=== PATIENT | female | born 1960 | race Caucasian/White ===

== ENCOUNTER 2016-10-10 10:34 | Emergency (ER) | payer OTHER ==
--- NOTE | 2016-10-10 11:52 | UC ---
Headache HPI - HPI Summary HPI Summary: complaint of headache that started 3 days ago- pain woke her up in the middle of the night when it started - feels different than her normal headaches headache started in her entire head and then moved to only the left side of head pain is achy constant pain yesterday started to feel tendernesss in her left side of face, left ear pain, left side of neck feels sore, left jaw pain when she opens and closes her mouth , left sided of throat pain denies dental pain feels like the hair on the left side of her head hurts slight nasal congestion d/t allergies for weeks denies fever but has had chills, feels fatigued taken acetaminophen and allergra, nasal spray without any relief denies vision changes, N/V/D - History Of Current Complaint Hx Obtained From: Patient Onset/Duration: Sudden Onset, Lasting Days Onset Of Symptoms: Still Present Initially Headache Was: "Worst Headache Ever" Timing: Constant Character: Dull Location of Headache: Temporal Aggravating Factor: Other - coughing Allevating Factors: Nothing Associated Signs And Symptoms: Positive: Sinus Pressure, Neck Pain <Kate Wilkerson - Last Filed: 10/10/16 12:29> <Osiris Robles - Last Filed: 10/10/16 14:16> - History Of Current Complaint Chief Complaint: UCHeadache Stated Complaint: HEADACHE Time Seen by Provider: 10/10/16 11:51 - Allergies/Home Medications Allergies/Adverse Reactions: Allergies Allergy/AdvReac Type Severity Reaction Status Date / Time Latex Allergy Severe Swelling Verified 03/25/16 13:03 Of Face,Lips,& Throat Meperidine [From Demerol HCl] Allergy Severe Swelling Verified 03/25/16 13:03 Of Face,Lips,& Throat Morphine Allergy Severe Swelling Verified 03/25/16 13:03 Of Face,Lips,& Throat Aspirin Allergy Intermediate upset Verified 03/25/16 13:03 stomach Hydrocodone Allergy Hives Verified 03/25/16 13:03 Hydromorphone [From Dilaudid] Allergy Hives/Diff. Verified 03/25/16 13:03 Breathing/I tching Oxycodone Allergy Itching Verified 03/25/16 13:03 PMH/Surg Hx/FS Hx/Imm Hx Previously Healthy: Yes - arthritis Neurological History: Migraine Psychological History: Anxiety, Depression - Surgical History Surgical History: None Surgery Procedure, Year, and Place: hysterectomy 2002, cholecyestectomy- 1978, breast biopsy -1978, COLONOSCOPY WITH POLYP REMOVAL, BLADDER WAS REPAIRED NO MESH AT TIME OF HYSTERECTOMY DUE TO BLADDER CYST; achilles tendon repair right - Family History Known Family History: Positive: Cardiac Disease, Other - Breast CA Negative: Hypertension, Diabetes - Social History Occupation: Employed Full-time Lives: With Family Alcohol Use: Rare Substance Use Type: None Substance Use Comment - Amount & Last Used: 2-3 CUPS COFFEE DAILY Smoking Status (MU): Former Smoker Type: Cigarettes Amount Used/How Often: 1 PPD X 25 YEARS Have You Smoked in the Last Year: No When Did the Patient Quit Smoking/Using Tobacco: 8 yrs ago - Immunization History Most Recent Tetanus Shot: UTD <Kate Wilkerson - Last Filed: 10/10/16 12:29> Review of Systems Constitutional: Chills, Fatigue Skin: Negative Eyes: Negative ENT: Sore Throat, Ear Ache Respiratory: Negative Cardiovascular: Negative Gastrointestinal: Negative Genitourinary: Negative Motor: Negative Neurovascular: Negative Musculoskeletal: Negative Neurological: Headache Psychological: Negative All Other Systems Reviewed And Are Negative: Yes <Kate Wilkerson - Last Filed: 10/10/16 12:29> Physical Exam Triage Information Reviewed: Yes Appearance: Well-Nourished, Pain Distress Vital Signs: Initial Vital Signs Temp 98 F 10/10/16 10:39 Pulse 82 10/10/16 10:39 Resp 18 10/10/16 10:39 Pulse Ox 100 10/10/16 10:39 Vital Signs Reviewed: Yes Eyes: Positive: Conjunctiva Clear, Other: - PERRL, EOMI left side tenderness, fundoscopic exam normal ENT: Positive: Pharynx normal, Nasal drainage, TM bulging, Other: - left side of face and temporal area tenderness. Negative: TM red Neck: Positive: Supple, No Lymphadenopathy Respiratory: Positive: Lungs clear, Normal breath sounds, No respiratory distress, No accessory muscle use Cardiovascular: Positive: RRR, No Murmur, Pulses Normal Abdomen Description: Positive: Nontender, Soft Bowel Sounds: Positive: Present Musculoskeletal: Positive: No Edema Neurological: Positive: Alert, Other: - negative romberg Psychological Exam: Normal Skin Exam: Normal <Kate Wilkerson - Last Filed: 10/10/16 12:29> Vital Signs: Initial Vital Signs Temp 98 F 10/10/16 10:39 Pulse 82 10/10/16 10:39 Resp 18 10/10/16 10:39 Pulse Ox 100 10/10/16 10:39 <Osiris Robles - Last Filed: 10/10/16 14:16> Headache Course/Dx - Course Course Of Treatment: exam completed. d/t 3 days headache that is now left sided - tenderness intemporal area and pain with left eye movement will send to ED for further evaluation and treatment. refuses ambu,ance transfer and will leave AMA and have friend take her by private vehicle - Differential Dx/Diagnosis Differential Diagnosis/HQI/PQRI: Subdural Hematoma, Migraine, Temporal Arteritis Provider Diagnoses: left sided headache and facial pain - Physician Notifications Discussed Patient Care With: Osiris Robles Time Discussed With Above Provider: 12:31 <Kate Wilkerson - Last Filed: 10/10/16 12:29> Discharge <Kate Wilkerson - Last Filed: 10/10/16 12:29> <Osiris Robles - Last Filed: 10/10/16 14:16> - Discharge Plan Condition: Stable Disposition: AGAINST MEDICAL ADVICE Referrals: Sabino Nelson MD [Primary Care Provider] - Attestation Statement User Type: Provider - I was available for consult. This patient was seen by the СЕРГЕЙ. The patient was not presented to, seen by, or examined by me. -Michael <Osiris Robles - Last Filed: 10/10/16 14:16>
[2016-10-10 12:38] VITALS: BP 132/75
== END 2016-10-10 12:34 | disposition left against medical advice (07) ==
LOC: UCEAST 10:34
DX: R51 Headache (principal); G50.1 Atypical facial pain; Z87.891 Personal history of nicotine dependence
CPT/HCPCS: 99212; G0463

== ENCOUNTER → 2016-10-10 12:59 | Emergency (ER) | payer OTHER ==
[~2016-10-10 12:59] MED LIST: Iohexol 350* (CONTRAST) 500 ML MDV IV ONE
--- NOTE | 2016-10-10 15:28 | RAD ---
HISTORY: Worst headache of life COMPARISONS: None TECHNIQUE: Multiple contiguous axial CT scans were obtained of the head without intravenous contrast. FINDINGS: HEMORRHAGE/INFARCT: There is no hemorrhage or acute infarct. MASSES/SHIFT: There is no mass or shift. EXTRA-AXIAL SPACES: There are no extra-axial fluid collections. SULCI AND VENTRICLES: The sulci and ventricles are normal in size and position for the patient's stated age. CEREBRUM: There are no focal parenchymal abnormalities. BRAINSTEM: There are no focal parenchymal abnormalities. CEREBELLUM: There are no focal parenchymal abnormalities. VESSELS: The vessels are grossly normal. PARANASAL SINUSES: The paranasal sinuses are clear. ORBITS: The orbits are unremarkable. BONES AND SOFT TISSUE: No bone or soft tissue abnormalities are noted. OTHER: None IMPRESSION: NO ACUTE INTRACRANIAL PATHOLOGY.
[2016-10-10 15:50] LABS: Hematocrit 38 % (35-47); Hemoglobin 12.2 g/dl (12.0-16.0); Mean Corpuscular HGB Conc 33 g/dl (31-36); Mean Corpuscular Hemoglobin 29 pg (27-31); Mean Corpuscular Volume 89 fL (80-97); Mean Platelet Volume 9 um3 (7.4-10.4); Red Blood Count 4.23 10^6/ul (4.0-5.4); Red Cell Distribution Width 14 % (10.5-15); White Blood Count 6.8 10^3/ul (3.5-10.8)
--- NOTE | 2016-10-10 16:03 | ED ---
Headache - HPI Summary HPI Summary: Patient presents to ED from [facility] with CC of numbness in left side of face, HOLLOWAY in left temporal area, left ear pain, left side of neck pain and pain with left eye movement. Slight tearing from the eye worse at night and better during the day. Denies worst HOLLOWAY of life, but states there are short bursts lightning pain that runs through the face, head and neck intermittently. Denies jaw claudication, fever, visual disturbances or transient vision loss. Patient has a history of HLA-B27 with mild diffuse pain throughout at baseline. No weakness , facial droop or slurred speech. Face does not feel weak, just feels severe pain on palpation. New onset HOLLOWAY x 1 week with no changes and not worsening. Denies trauma. No nasal drainage. No hx of migraines. Denies photophobia or phonophobia. - History Of Current Complaint Chief Complaint: EDHeadache Stated Complaint: HEADACHE/LT SIDE FACIAL PAIN Time Seen by Provider: 10/10/16 14:30 Hx Obtained From: Patient Onset/Duration: Started days ago Initially Headache Was: Initial Pain Scale(0-10)= - 8 Currently Pain Is: Current Pain Scale(0-10)= - 8 Timing: Intermittent, Lasting: - several seconds Character: Sharp, Throbbing Location of Headache: Temporal Radiates to: left side of face Allevating Factors: Nothing Associated Signs And Symptoms: Negative - Risk Factors SAH Risk Factors: Negative Meningitis Risk Factors: Negative SDH Risk Factors: Negative Temporal Arteritis Risk Factors: Negative - Allergies/Home Medications Allergies/Adverse Reactions: Allergies Allergy/AdvReac Type Severity Reaction Status Date / Time Latex Allergy Severe Swelling Verified 03/25/16 13:03 Of Face,Lips,& Throat Meperidine [From Demerol HCl] Allergy Severe Swelling Verified 03/25/16 13:03 Of Face,Lips,& Throat Morphine Allergy Severe Swelling Verified 03/25/16 13:03 Of Face,Lips,& Throat Aspirin Allergy Intermediate upset Verified 03/25/16 13:03 stomach Hydrocodone Allergy Hives Verified 03/25/16 13:03 Hydromorphone [From Dilaudid] Allergy Hives/Diff. Verified 03/25/16 13:03 Breathing/I tching Oxycodone Allergy Itching Verified 03/25/16 13:03 PMH/Surg Hx/FS Hx/Imm Hx Previously Healthy: Yes Endocrine/Hematology History: Denies: Hx Diabetes, Hx Thyroid Disease Cardiovascular History: Reports: Hx Angina Denies: Hx Congestive Heart Failure, Hx Coronary Artery Disease, Hx Hypercholesterolemia, Hx Hypertension, Hx Myocardial Infarction, Hx Pacemaker/ ICD, Hx Valvular Heart Disease Respiratory History: Reports: Hx Asthma - with illnesses, Hx Pneumonia, Hx Seasonal Allergies Denies: Hx Chronic Obstructive Pulmonary Disease (COPD) GI History: Reports: Hx Irritable Bowel, Hx Ulcer - gerd, Other GI Disorders - irritable bowel syndrome History: Denies: Hx Renal Disease Musculoskeletal History: Reports: Hx Arthritis, Hx Fibromyalgia, Hx Orthopedic Injury - plantar fascia, Other Musculoskeletal History - fibromyalgia Sensory History: Reports: Hx Contacts or Glasses Denies: Hx Cataracts, Hx Eye Injury, Hx Eye Prosthesis, Hx Glaucoma, Hx Macular Degeneration, Hx Vision Problem, Hx Hearing Aid, Other Sensory Impairments Opthamlomology History: Reports: Hx Contacts or Glasses Denies: Hx Cataracts, Hx Eye Injury, Hx Eye Prosthesis, Hx Glaucoma, Hx Macular Degeneration, Hx Vision Problem, Other Sensory Impairments Neurological History: Reports: Hx Headaches, Hx Migraine - l Denies: Hx Dementia, Hx Developmental Delay, Hx Seizures, Hx Spinal Cord Injury, Hx Transient Ischemic Attacks (TIA) Psychiatric History: Reports: Hx Depression - ON PAXIL FOR MILD DEPRESSION Denies: Hx Panic Disorder - Surgical History Surgery Procedure, Year, and Place: hysterectomy 2002, cholecyestectomy- 1978, breast biopsy -1978, COLONOSCOPY WITH POLYP REMOVAL, BLADDER WAS REPAIRED NO MESH AT TIME OF HYSTERECTOMY DUE TO BLADDER CYST; achilles tendon repair right Hx Anesthesia Reactions: No - slow to come out of it - Immunization History Hx Pertussis Vaccination: No Immunizations Up to Date: Unable to Obtain/Confirm Infectious Disease History: No Infectious Disease History: Denies: Hx Clostridium Difficile, Hx Hepatitis, Hx Human Immunodeficiency Virus (HIV), Hx of Known/Suspected MRSA, Hx Shingles, Hx Tuberculosis, Hx Known/ Suspected VRE, Hx Known/Suspected VRSA, History Other Infectious Disease, Traveled Outside the [place] in Last 30 Days - Family History Known Family History: Positive: Cardiac Disease, Other - Breast CA Negative: Hypertension, Diabetes - Social History Occupation: Employed Full-time Lives: With Family Alcohol Use: Rare Hx Substance Use: No Substance Use Type: Reports: None Substance Use Comment - Amount & Last Used: 2-3 CUPS COFFEE DAILY Hx Tobacco Use: Yes Smoking Status (MU): Former Smoker Type: Cigarettes Amount Used/How Often: 1 PPD X 25 YEARS Have You Smoked in the Last Year: No Review of Systems Constitutional: Negative Positive: Drainage - mild ENT: Negative Cardiovascular: Negative Respiratory: Negative Positive: no symptoms reported, see HPI Skin: Negative Positive: Headache, Weakness, Paresthesia, Numbness Psychological: Normal All Other Systems Reviewed And Are Negative: Yes Physical Exam Triage Information Reviewed: Yes Vital Signs On Initial Exam: Initial Vitals Temp Pulse Resp BP Pulse Ox 98.8 F 72 16 147/56 98 10/10/16 13:00 10/10/16 13:00 10/10/16 13:00 10/10/16 13:00 10/10/16 13:00 Completion Of Physical Exam Limited Due To: Dementia Appearance: Positive: Well-Appearing, Well-Nourished Skin: Positive: Warm, Skin Color Reflects Adequate Perfusion Head/Face: Positive: Temporal Artery Tenderness, TMJ Tenderness, Scalp - tenderness Eyes: Positive: Normal, ABRAHAN, Conjunctiva Clear Neck: Positive: Supple, Nontender, No Lymphadenopathy Respiratory/Lung Sounds: Positive: Clear to Auscultation, Breath Sounds Present Musculoskeletal: Positive: Normal, Strength/ROM Intact Neurological: Positive: Normal, Sensory/Motor Intact, Alert, Oriented to Person Place, Time, CN Intact II-III, Normal Gait, Facial Symmetry, Speech Normal Psychiatric: Positive: Normal AVPU Assessment: Alert - [place] Coma Scale Coma Scale Total: 15 Diagnostics - Vital Signs Vital Signs Temp Pulse Resp BP Pulse Ox 10/10/16 13:00 98.8 F 72 16 147/56 98 - Laboratory Lab Results: Lab Results 10/10/16 Range/Units 15:41 WBC 6.8 (3.5-10.8) 10^3/ul RBC 4.23 (4.0-5.4) 10^6/ul Hgb 12.2 (12.0-16.0) g/dl Hct 38 (35-47) % MCV 89 (80-97) fL MCH 29 (27-31) pg MCHC 33 (31-36) g/dl RDW 14 (10.5-15) % Plt Count 224 (150-450) 10^3/ul MPV 9 (7.4-10.4) um3 Neut % (Auto) 43.2 (38-83) % Lymph % (Auto) 43.3 (25-47) % Dewey % (Auto) 10.6 H (1-9) % Eos % (Auto) 2.2 (0-6) % Baso % (Auto) 0.7 (0-2) % Absolute Neuts (auto) 3.0 (1.5-7.7) 10^3/ul Absolute Lymphs (auto) 3.0 (1.0-4.8) 10^3/ul Absolute Monos (auto) 0.7 (0-0.8) 10^3/ul Absolute Eos (auto) 0.2 (0-0.6) 10^3/ul Absolute Basos (auto) 0 (0-0.2) 10^3/ul Absolute Nucleated RBC 0.01 10^3/ul Nucleated RBC % 0.1 ESR Pending Result Diagrams: 10/10/16 15:41 Lab Statement: Any lab studies that have been ordered have been reviewed, and results considered in the medical decision making process. Headache Course/Dx - Course Course Of Treatment: Based on International Classification of Headache Disorders , she meets diagnostic criteria for trigeminal neuralgia. Denies jaw claudication, fever, visual disturbances or transient vision loss. Patient has a history of HLA-B27 with mild diffuse pain throughout at baseline. New onset HOLLOWAY x 1 week with no changes and not worsening. Denies trauma. Seen at who sent her here for r/o subarachnoid or subdural. Discharge - Discharge Plan Referrals: Sabino Nelson MD [Primary Care Provider] -
[2016-10-10 16:59] LABS: Erythrocyte Sed Rate 25 mm/Hr (0-30)
[2016-10-10 18:35] LABS: Albumin 3.7 g/dL (3.2-5.2); BUN/Creatinine Ratio 21.5 (8-20); Calcium 8.7 mg/dL (8.6-10.3); EGFR African American 121.7 (>60); EGFR Non-African American 94.6 (>60); Globulin 2.3 g/dL (2-4); Potassium 3.6 mmol/L (3.5-5.0); Total Bilirubin 0.4 mg/dL (0.2-1.0)
--- NOTE | 2016-10-10 20:10 | RAD ---
Indication: Left facial and head pain. Contrast: Administered 80.1 ml of OMNIPAQUE 350 mgi/ml CTA of the neck and head was performed after IV contrast administration. Coronal and sagittal reconstructed images were obtained. The origins of the great vessels are unremarkable. The right and left common carotid artery demonstrates no calcifications. Internal carotid artery and bulb demonstrates no abnormal calcification. The internal carotid arteries bilaterally demonstrates normal caliber without evidence of carotid artery dissection. The vertebral arteries demonstrates no evidence of vertebral artery dissection. Basilar artery is unremarkable. The intracranial carotid arteries demonstrates normal bifurcation. No aneurysmal dilatation is noted. No branch occlusion is identified. The posterior cerebral arteries are unremarkable. The soft tissues of the neck including thyroid gland, submandibular glands and parotid glands are unremarkable. Scattered normal-sized lymph nodes are present throughout the neck. The lung apices are grossly unremarkable. IMPRESSION: No evidence of internal carotid artery or vertebral artery dissection. Vessels appear normal caliber throughout. Intracranial vessels demonstrates no evidence of a residual dilatation or branch occlusion.
[2016-10-10 20:36] VITALS: BP 129/71
== END | disposition home or self-care (01) ==
LOC: ED 12:59
DX: G50.0 Trigeminal neuralgia (principal); F03.90 Unspecified dementia, unspecified severity, without behavioral disturbance, psychotic disturbance, mood disturbance, and anxiety; Z88.5 Allergy status to narcotic agent
CPT/HCPCS: 36415; 70450; 70496; 70498; 80053; 85025; 85652; 86140; 99282; Q9967

== ENCOUNTER 2017-09-11 14:02 | Emergency (ER) | payer OTHER ==
--- NOTE | 2017-09-11 15:25 | UC ---
Shoulder Pain HPI - HPI Summary HPI Summary: 10 years ago patient had a partial tear of her biceps tendon heads had pain in her right antecubital area was treated with physical therapy and has been doing fine in the last 7-10 days patient has had right shoulder pain with no known injuries she has pain that radiates from the anterior shoulder up around. She has decreased range of motion and the pain is now been waking her up at night. - History of Current Complaint Hx Obtained From: Patient Hx Last Menstrual Period: post ?: No Onset/Duration: Gradual Onset, Lasting Days - 7-10, Still Present Timing: Constant Location Of Pain: Is Discrete @ - right shoulder Pain Intensity: 7 Pain Scale Used: 0-10 Numeric Character: Aching, Throbbing Aggravating Factor(s): Movement Alleviating Factor(s): Nothing Associated Signs And Symptoms: Positive: Negative Related History: Dominant Hand Right <Nguyen Carbone - Last Filed: 09/11/17 17:31> <Osiris Robles - Last Filed: 09/12/17 08:15> - History of Current Complaint Chief Complaint: UCUpperExtremity Stated Complaint: SHOULDER INJURY Time Seen by Provider: 09/11/17 15:20 - Allergies/Home Medications Allergies/Adverse Reactions: Allergies Allergy/AdvReac Type Severity Reaction Status Date / Time aspirin Allergy Severe GI Upset Verified 09/11/17 14:38 hydrocodone Allergy Severe airway Verified 09/11/17 14:38 swelling hydromorphone Allergy Severe airway Verified 09/11/17 14:38 swelling latex Allergy Severe swelling, Verified 09/11/17 14:38 airway meperidine Allergy Severe swelling, Verified 09/11/17 14:38 airway morphine Allergy airway Verified 09/11/17 14:38 swelling oxycodone Allergy airway Verified 09/11/17 14:38 swelling PMH/Surg Hx/FS Hx/Imm Hx Previously Healthy: No - enviromental allergies GI/ History: Gastroesophageal Reflux Psychological History: Depression - Surgical History Surgical History: Yes Surgery Procedure, Year, and Place: hysterectomy 2002, cholecyestectomy- 1978, breast biopsy -1978, COLONOSCOPY WITH POLYP REMOVAL, BLADDER WAS REPAIRED NO MESH AT TIME OF HYSTERECTOMY DUE TO BLADDER CYST; achilles tendon repair right - Family History Known Family History: Positive: Cardiac Disease, Other - Breast CA Negative: Hypertension, Diabetes - Social History Occupation: Unemployed Lives: With Family Alcohol Use: Rare Substance Use Type: None Substance Use Comment - Amount & Last Used: 2-3 CUPS COFFEE DAILY Smoking Status (MU): Former Smoker Type: Cigarettes Amount Used/How Often: 1 PPD X 25 YEARS Have You Smoked in the Last Year: No When Did the Patient Quit Smoking/Using Tobacco: 8 yrs ago - Immunization History Most Recent Tetanus Shot: UTD <Nguyen Carbone - Last Filed: 09/11/17 17:31> Review of Systems Constitutional: Negative Skin: Negative Eyes: Negative ENT: Negative Respiratory: Negative Cardiovascular: Negative Gastrointestinal: Negative Genitourinary: Negative Motor: Decreased ROM - right shoulder Neurovascular: Negative Musculoskeletal: Arthralgia - right shoulder Neurological: Negative Psychological: Negative Is Patient Immunocompromised?: No All Other Systems Reviewed And Are Negative: Yes <Nguyen Carbone - Last Filed: 09/11/17 17:31> Physical Exam Triage Information Reviewed: Yes Appearance: Well-Appearing, No Pain Distress, Well-Nourished Vital Signs: Initial Vital Signs Temp 98 F 09/11/17 14:18 Pulse 71 09/11/17 14:18 Resp 15 09/11/17 14:18 BP 134/79 09/11/17 14:18 Pulse Ox 99 09/11/17 14:18 Vital Signs Reviewed: Yes Eye Exam: Normal Eyes: Positive: Conjunctiva Clear ENT Exam: Normal ENT: Positive: Normal ENT inspection, Hearing grossly normal. Negative: Trismus , Muffled voice, Hoarse voice Dental Exam: Normal Neck exam: Normal Neck: Positive: Supple, Nontender Respiratory Exam: Normal Respiratory: Positive: Chest non-tender, No respiratory distress, No accessory muscle use Cardiovascular Exam: Normal Cardiovascular: Positive: RRR, Pulses Normal, Brisk Capillary Refill Musculoskeletal Exam: Normal Musculoskeletal: Positive: Strength Intact, ROM Intact, No Edema Neurological Exam: Normal Neurological: Positive: Alert, Muscle Tone Normal Psychological Exam: Normal Skin Exam: Normal <Nguyen Carbone Last Filed: 09/11/17 17:31> Vital Signs: Initial Vital Signs Temp 98 F 09/11/17 14:18 Pulse 71 09/11/17 14:18 Resp 15 09/11/17 14:18 BP 134/79 09/11/17 14:18 Pulse Ox 99 09/11/17 14:18 <Osiris Robles - Last Filed: 09/12/17 08:15> Diagnostics - Radiology No standard instances Xray Interpretation: Positive (See Comments) - Patient Name: IAN CLINTON Medical Record#: [id number] Ordering Physician: Nguyen Carbone NP Acct.#: [id number] : 1960 Age: 56 Sex: F Location: [facility] Exam Date: 09/11/17 1525 ADM Status : REG ER Order Information: SHOULDER RIGHT 2+ VWS Accession Number: [id number] CPT: 91555 Indication: Right shoulder pain. 4 views of the right shoulder demonstrates AC joint arthritis. There is no fracture. Joint spaces well-preserved. IMPRESSION: AC joint arthritis without fracture. <Electronically signed by Yaquelin Rolon MD in OV> 09/11/17 1557 Dictated By: Yaquelin Rolon MD Dictated Date/Time: 09/11/17 1557 Transcribed Date/Time: 09/11/17 1556 Copy to: CC:Shelley Murray MD; Nguyen Carbone NP; Cleveland Farr MD Imaging - [facility] Imaging - [facility] [address] [place] [address] ph [phone]) ph ([phone]) ph ([phone]) 1 of 1 Radiology Interpretation Completed By: ED Physician, Radiologist <Nguyen Carbone - Last Filed: 09/11/17 17:31> Shoulder Course/Dx - Course Assessment/Plan: Nsaids, referal to orthopedic MD, may use heat or cold for pain relief prn as well - Differential Dx/Diagnosis Provider Diagnoses: right shoulder pain, arthritis <Nguyen Carbone - Last Filed: 09/11/17 17:31> Discharge - Sign-Out/Discharge Documenting (check all that apply): Discharge/Admit/Transfer - Billing Disposition and Condition Condition: STABLE Disposition: Home <Nguyen Carbone - Last Filed: 09/11/17 17:31> - Billing Disposition and Condition Condition: STABLE Disposition: Home <Osiris Robles - Last Filed: 09/12/17 08:15> - Discharge Plan Condition: Stable Disposition: HOME Prescriptions: Meloxicam(NF) [Mobic(NF)] 7.5 mg PO BID PRN #30 tab PRN Reason: Pain Patient Education Materials: Osteoarthritis (ED), Shoulder Pain (ED) Referrals: Abhijeet Cui MD [Medical Doctor] - 1 Week Attestation Statement User Type: Provider - I was available for consult. This patient was seen by the СЕРГЕЙ. The patient was not presented to, seen by, or examined by me. -Michael <Osiris Robles - Last Filed: 09/12/17 08:15>
--- NOTE | 2017-09-11 16:00 | RAD ---
Indication: Right shoulder pain. 4 views of the right shoulder demonstrates AC joint arthritis. There is no fracture. Joint spaces well-preserved. IMPRESSION: AC joint arthritis without fracture.
[2017-09-11 16:38] VITALS: BP 136/74
== END 2017-09-11 16:33 | disposition home or self-care (01) ==
LOC: UCEAST 14:02
DX: M25.511 Pain in right shoulder (principal); M19.011 Primary osteoarthritis, right shoulder; K21.9 Gastro-esophageal reflux disease without esophagitis; F32.9 Major depressive disorder, single episode, unspecified; Z88.5 Allergy status to narcotic agent; Z88.6 Allergy status to analgesic agent; Z91.040 Latex allergy status; Z82.49 Family history of ischemic heart disease and other diseases of the circulatory system; Z80.3 Family history of malignant neoplasm of breast; Z87.891 Personal history of nicotine dependence
CPT/HCPCS: 99211; G0463

== ENCOUNTER 2017-12-25 09:10 | Day surgery (SDC) | payer BC ==
--- NOTE | 2017-12-20 22:02 | HP ---
PREOPERATIVE HISTORY AND PHYSICAL: DATE OF ADMISSION/SURGERY: 12/25/17 DATE OF OFFICE VISIT: ATTENDING SURGEON: Dr. Amber Morris.* (DICTATED BY BRADY ULRICH) PROCEDURE: Right shoulder arthroscopic rotator cuff repair, decompression, debridement, and excision of distal clavicle. CHIEF COMPLAINT: Right shoulder pain. HISTORY OF PRESENT ILLNESS: Liza is a 57-year-old female, who presents to the clinic for right shoulder pain due to a possible rotator cuff injury. She had failed conservative measures to include physical therapy, ice, heat, anti- inflammatories, and an injection. She recently got an MRI and is here for MRI results today that revealed a rotator cuff tear. Therefore, she has agreed to undergo right shoulder arthroscopic rotator cuff repair, decompression, debridement, and excision of distal clavicle with Dr. Morris on 12/25/17. PAST MEDICAL HISTORY: Fibromyalgia, GERD, back pain, lymphedema of the right leg, allergies, IBS, obstructive sleep apnea, and HLA-B27 positive. PAST SURGICAL HISTORY: Left foot surgery, cholecystectomy, hysterectomy, and breast biopsy. The patient denies prior complications with anesthesia. MEDICATIONS: 1. 150 mg/mL subcutaneous injection. 2. B12 fast dissolve 5000 mcg sublingual daily. 3. Pantoprazole 40 mg daily. 4. Fluticasone 50 mcg per ACT 2 sprays per nostril as needed. 5. Ventolin HFA 108 mcg per ACT 2 puffs 4 times a day as needed. 6. Paxil 30 mg 1 daily. 7. Valacyclovir 500 mg as needed for flare ups. 8. Gabapentin 600 mg 1 by mouth once daily. 9. Zyrtec 10 mg 1 mouth daily. ALLERGIES: LATEX, MORPHINE, DEMEROL, OXYCODONE. FAMILY HISTORY: Positive for diabetes, hypertension, stroke, cancer, and RA. SOCIAL HISTORY: She lives with her spouse. She works at [employer]. She is a former smoker, quit 10 years ago. She reports regular alcohol consumption. She is right hand dominant. REVIEW OF SYSTEMS: A 14-point review of systems was reviewed with the patient. Positive for current complaint, otherwise negative. Denies numbness, tingling, fevers, chills, chest pain, shortness of breath, history of bleeding disorder, history of DVT or PE. PHYSICAL EXAMINATION GENERAL: A 57-year-old well-developed, well-nourished female, in no acute distress. Alert and oriented x3. Appropriate mood and affect. Good balance and coordination of all 4 extremities. VITAL SIGNS: Height 66, weight 248. Blood pressure 126/68, respiratory rate 18 , BMI 40. HEENT: Normocephalic, atraumatic. PERRLA. Throat clear. NECK: Supple. PULMONARY: Lungs clear to auscultation bilaterally. No wheezing, rhonchi, or rales. CARDIO: Regular rate and rhythm, S1, S2. No murmurs, gallops, or rubs. No edema. ABDOMEN: Positive bowel sounds. Soft, nontender. MUSCULOSKELETAL: Right upper extremity: Skin is intact. No warmth or erythema. Tenderness to palpation of bicipital groove in the AC joint, tender over the subacromial space. Forward flexion 160, abduction 90, external rotation 45. +4/5 strength with supraspinatus testing with pain. Positive impingement, [place], [place], and [place]. +2 radial pulse. Sensation is intact to light touch distally. NEURO: Alert and oriented x3. Cranial nerves grossly intact. DIAGNOSTIC STUDIES: MRI of the right shoulder was independently reviewed by Dr. Morris, and reveals partial-thickness tear of the supraspinatus and infraspinatus tendon with tendinosis and the SLAP lesion. IMPRESSION: Right shoulder rotator cuff tear and AC joint arthritis. PLAN: Liza is a 57-year-old female, who presents to the clinic for followup of her right shoulder. She has tearing of her rotator cuff on MRI as well as AC joint arthritis. She has failed conservative measures to include ice, heat, anti- inflammatories, and injection and physical therapy, and has therefore agreed to undergo a right shoulder arthroscopic rotator cuff repair, decompression, debridement, and excision distal clavicle with Dr. Morris on . Postop recovery and risks of surgery to include injury to blood vessels , nerves, surrounding structures, bleeding, infection, stiffness, need for further surgery, risk of anesthesia, and risk of DVT and PE were discussed with the patient. The patient has agreed to undergo the procedure. Tylenol with Codeine will be used for postop pain management. She is unable to tolerate other narcotics. She will follow up in 10 to 14 days postop for followup and suture removal. BRADY ULRICH [id number]/[facility] #: [id number] [facility]
[~2017-12-25 09:10] MED LIST changes: +Buffered Lidocaine 0.9% SYRIN* 5 ML/SYR SYRINGE INTRADERM ONE; +Dexamethasone IV* 4 MG/ML 1 ML (4 MG) IV SLOW PU ONE; +Dexamethasone IV* 4 MG/ML 1 ML (4 MG) ONE; +Famotidine IV* 10 MG/ML 2 ML (20 mg) IV ONE; +Famotidine IV* 10 MG/ML 2 ML (20 mg) ONE; -Iohexol 350* (CONTRAST) 500 ML MDV IV ONE
[2017-12-25] MEDS ORDERED: ceFAZolin 2 GM in NS PREMIX(*) 2 GM/100 ML BAG IVPB ONE (09:11)
[2017-12-25] MEDS ORDERED: Ketorolac INJ* 30 MG/ML 1 ML VIAL ONE (09:16)
[2017-12-25] MEDS ORDERED: Midazolam* 1 MG/ML 5 ML VIAL (5 MG) ONE (09:16)
[2017-12-25] MEDS ORDERED: Ondansetron INJ* 2 MG/ML VIAL ONE (09:16)
[2017-12-25] MEDS ORDERED: Propofol* 10 MG/ML 20 ML BTL IV PUSH ONE (09:16)
[2017-12-25] MEDS ORDERED: fentaNYL* 50 MCG/ML 2 ML VIAL (100 MCG VIAL) ONE ×2 (09:16→11:01)
[2017-12-25] MEDS ORDERED: Lidocaine 2% PF * 5 ML VIAL ONE (09:16)
[2017-12-25] MEDS ORDERED: ROPIVACAINE 5 MG/ML 30 ML BTL (0.5%) ONE ×2 (09:42→11:43)
[2017-12-25] MEDS ORDERED: Ondansetron INJ* 2 MG/ML VIAL IV PRN (10:49)
[2017-12-25] MEDS ORDERED: Naloxone* 0.4 MG/ML 1 ML VIAL IV PRN (10:49)
[2017-12-25] MEDS ORDERED: DiMENhydriNATE IV* 50 MG/ML VIAL IV PUSH PRN (10:49)
[2017-12-25] MEDS ORDERED: fentaNYL* 50 MCG/ML 2 ML VIAL (100 MCG VIAL) IV PRN (10:49)
[2017-12-25] MEDS ORDERED: Glycopyrrolate IV* 0.2 MG/ML 1 ML VIAL ONE (11:09)
[2017-12-25] MEDS ORDERED: EPHEDrine (Pressors)* 50 MG/ML VIAL ONE (11:43)
[2017-12-25] MEDS ORDERED: Levalbuterol HFA INHALER* 1 PUFF MDI ONE (11:43)
[2017-12-25] MEDS ORDERED: Succinylcholine* 20 MG/ML 10 ML VIAL ONE (12:10)
[2017-12-25 13:39] VITALS: BP 101/59
--- NOTE | 2017-12-26 17:04 | OP ---
CC: PCP OPERATIVE REPORT: DATE OF OPERATION: 12/25/17 DATE OF : 60 ATTENDING SURGEON: Amber Morris MD DEATH SURVEYS CODER: BRADY Woo An pharmacist assistant was needed for the entirety of the case to help with positioning, retraction, and was ut ilized throughout all portions of the case. ANESTHESIOLOGIST: Dr. Tomas. ANESTHESIA: General with interscalene block. PRE-OP DIAGNOSIS: Right shoulder partial-thickness tear of the rotator cuff with acromioclavicular j oint arthritis and bicipital tendinitis. POST-OP DIAGNOSIS: Right shoulder partial-thickness tear of the rotator cuff with acromioclavicular joint arthritis and bicipital tendinitis. OPERATIVE PROCEDURE: 1. Right shoulder arthroscopy with extensive glenohumeral debridement including chondroplasty. 2. Subacromial decompression with acromioplasty. 3. Rotator cuff repair of the supraspinatus tendon and debridement of the subscapularis. 4. Subpectoral biceps tenodesis. 5. Distal clavicle excision arthroscopically. COMPLICATIONS: None. ESTIMATED BLOOD LOSS: Minimal. IMPLANTS USED: One 4.75 Healicoil, 1 MultiFIX, and 1 Q-FIX 2.8 mm. INDICATIONS: Liza Rojas is a 57-year-old female who has had persistent shoulder pain. She has failed conservative management including physical therapy and anti-inflammatories, and she has electe d to proceed with surgical treatment. Risks and benefits of the surgery were discussed at length incl ude but not limited to bleeding; infection; damage to nerves, vessels, surrounding structures; wound nonhealing; persistent pain; need for further surgery; scarring; stiffness; incomplete relief of symp toms; and risks of anesthesia. DESCRIPTION OF PROCEDURE: The patient was greeted in the preoperative area by the attending surgeon. The correct extremity was marked and the consent was confirmed. The patient underwent interscalene nerve block by the anesthesiologist after which she was brought back to the operating suite. She was placed in supine position on the operating table. She underwent general anesthesia and endotracheal intubation, after which she was placed in the left lateral decubitus position. She was secured with a pegboard. She was draped unsterile with 10-pound traction. The right shoulder was prepped and dr aped in usual sterile fashion beginning with chlorhexidine soap, scrub, and alcohol wipe and a final prep with ChloraPrep. After appropriate surgical pause indicating site, side, procedure, administration of antibiotics, a s tandard posterolateral portal was made sharply with an 11-blade. Scope was introduced into the joint, joint was examined. There were grade 2 changes to the glenohumeral joint with some fraying and mild osteoarthritis. The anterior portal was made in an outside-in fashion. There was a type 2 SLAP tea r. The undersurface of the rotator cuff had high-grade partial-tearing with unstable flaps. The subs cap had some partial-thickness tearing as well. The anterior portal was made in an outside-in fashio n. A shaver was used to do a small chondroplasty. The inferior recess was intact. The biceps was t hen tenotomized for later tenodesis. The undersurface of the supraspinatus and subscapularis were de brided back using the shaver. The attention was then directed to the subacromial space. With the scope in the subacromial space, the lateral portal was made and shaver was used to debride b ack the abundant bursa that was present. This was very hyperemic. Hemostasis was obtained using elec trocautery device. Next, the undersurface of the acromion was skeletonized using the electrocautery device. A 4-0 oval bur was then used to do an acromioplasty. Once this was completed, attention was directed to the distal clavicle. The bur was brought into the anterior wound and the distal 8 mm of the clavicle were then resected un anthony arthroscopic visualization using 4-0 oval bur. All fluid and debris was removed from this portio n of the case. Attention was directed to the rotator cuff. It was gently probed. The previous area that had been marked by the 0 PDS suture was then probed and was found to have partial-thickness bur dayami- sided tearing. At this point, the decision was made to complete the tear and then perform a rot ator cuff repair. The tear was completed with 11-blade. The shaver was used to debride back the ten dinopathic and diseased tissue. The electrocautery device was then used to prepare the greater tuber osity. The rasp and the 4-0 oval bur were then used to gently decorticate the greater tuberosity. A fter this was completed, through a separate stab incision one 4.75 Healicoil was then placed with exc ellent purchase. She had good quality bone. Sutures were then passed through the tendon in a horizo ntal mattress configuration. Sutures were then tied down. The sutures were then passed through 1 Mul tiFIX anchor, which was placed for lateral wall fixation. The shoulder was taken through range of mo tion and found to be intact. Final images were obtained. The wounds were copiously irrigated with s terile saline. Attention was directed to the biceps. The bed was air-planed to the right side. The anterior aspect of the shoulder was prepped again usin g ChloraPrep. A 15-blade was used to make an incision along the biceps. Soft tissues were carefully dissected to expose the fascia. Remainder of the dissection was done bluntly. The bicipital groove was then palpated. The biceps was then brought through the wound and found to have synovitis. The groove was prepared in the usual fashion and a Q-FIX 2.8 mm guide was then drilled unicortically and the Q-FIX deployed with excellent purchase. Sutures were then passed through the tendon in a Keo-A llen type configuration. The excess biceps was excised and the biceps was shoveled back to the wound and tied down. The wounds were copiously irrigated with sterile saline. The anterior wound was catarino sed with 2-0 Vicryl and 3-0 Monocryl. The portals were closed with 3-0 nylon. Sterile dressings wer e applied. She was awoken from anesthesia and transferred to PACU in stable condition. POSTOPERATIVE PLAN: She will be nonweightbearing. She will be discharged on pain medications and an tibiotics. DVT prophylaxis was considered but deferred due to no previous personal or family history . I will see the patient back in 10 to 14 days. [id number]/[facility] #: [id number]
== END 2017-12-25 14:21 | disposition home or self-care (01) ==
LOC: OR 09:10
PROVIDERS: ATTEND Orthopaedic Surgery
DX: S46.011A Strain of muscle(s) and tendon(s) of the rotator cuff of right shoulder, initial encounter (principal); M75.21 Bicipital tendinitis, right shoulder; M19.011 Primary osteoarthritis, right shoulder; G89.18 Other acute postprocedural pain; X58.XXXA Exposure to other specified factors, initial encounter; Y92.9 Unspecified place or not applicable; M79.7 Fibromyalgia; G47.33 Obstructive sleep apnea (adult) (pediatric); Z87.891 Personal history of nicotine dependence
CPT/HCPCS: A9270-GY; C1713; C1776; J0330; J0690; J1100; J1885; J2250; J2405; J2704; J2795; J3010

== ENCOUNTER 2018-05-20 11:22 | Inpatient (IN) | payer BC ==
[~2018-05-20 11:22] MED LIST changes: +Acetaminophen TAB* 325 MG PO ONE; -Buffered Lidocaine 0.9% SYRIN* 5 ML/SYR SYRINGE INTRADERM ONE; +Buffered Lidocaine 1% SYRIN* 1 ML/SYRINGE INTRADERM ONE; -Dexamethasone IV* 4 MG/ML 1 ML (4 MG) IV SLOW PU ONE; -Dexamethasone IV* 4 MG/ML 1 ML (4 MG) ONE; -Famotidine IV* 10 MG/ML 2 ML (20 mg) IV ONE; -Famotidine IV* 10 MG/ML 2 ML (20 mg) ONE; +Gabapentin CAP(*) 300 MG PO ONE; +Lactated Ringers 1000 ML Bag* 1,000 ML IV SCH
--- OUTSIDE RECORDS SUMMARY | 2018-05-20 11:26 | XMS REPORT | Continuity of Care Document ---
:1960 External Reference #:[id number] Author Name Akshat Adair Care Team Providers Name Role Phone Cleveland Farr MD Primary Care Physician Unavailable Payers Type Date Identification Numbers Payment Provider Subscriber Policy Number: [id number] [employer] Liza Rojas PayID: [id number] [address] [address] [place] [address] Expires: 2017 Policy Number: [id number] [employer] Krystian Rojas PayID: [id number] [address] [place] [address] Advance Directives Description No Information Available Problems Date Description Provider Status Onset: 04/04/2018 Impaired fasting glycaemia Jovanny Jarvis M.D.,FACP Onset: 04/04/2018 Mixed hyperlipidemia Jovanny Jarvis M.D.FACP Onset: 06/05/2017 Human leukocyte antigen B27 test Cleveland Farr Active positive KirstinFACKristel Onset: 03/12/2016 Obesity Jacqui Nielsen MD Active Onset: 03/12/2016 Allergic rhinitis Jacqui Nielsen MD Active Onset: 04/03/2016 Obstructive sleep apnea syndrome Apolonia Pollard DNP, RN, Active [employer] Onset: 10/30/2016 Trigeminal neuralgia Fox Coley M.D. Active Onset: 10/30/2016 Sleep apnea Fox Coley M.D. Active Onset: 10/30/2016 Lumbar radiculopathy Fox Coley M.D. Active Onset: 10/30/2016 Thoracic and lumbosacral Fox Coley M.D. Active neuritis Onset: 10/30/2016 Fibromyalgia Fox Coley M.D. Active Onset: 10/30/2016 Mild recurrent major depression Fox Coley M.D. 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 Agent [place] exposure. Father due to Stroke () Father Osteoporosis Father Diabetes Type II Father MS possible silent MS age 50's. Mother at age 46 breast cancer : (age 46 Mother due to Breast dx 38 Years) Cancer Siblings 4 Youngest brother killed in MVA Oldest brother MR, HIV Siblings Step brother from lung cancer; step mother lung cancer Siblings 2 half-sisters First Brother HIV First Sister Breast Cancer Second Sister Breast Cancer Social History Type Date Description Comments Sex Unknown Marital Status Lives With Occupation 01/2018 Currently Working [employer] for [employer] Tobacco Use End: 04/08/05 Quit 10 years ago as of 30 years of tobacco 2016 use ETOH Use 04/04/2018 Occasionally consumes alcohol Recreational Drug Use Denies Drug Use Tobacco Use Start: Unknown End: Patient is a former Unknown smoker Smoking Status Reviewed: 04/29/18 Patient is a former smoker Exercise Type/Frequency Does not exercise Allergies, Adverse Reactions, Alerts Date Description Reaction Status Severity Comments 09/02/2013 Latex Active 09/02/2013 Morphine Active 09/02/2013 Demerol Active 11/26/2013 Oxycodone Active 04/03/2018 Valium Active Medications Medication Date Status Form Strength Qnty SIG Indications Ordering Provider Systane 04/14 Active Solution 0.4-0.3% 15ml apply twice daily as Dee, needed for dry M.D. eyes Meloxicam 04/14 Active Tablets 7.5mg 30tab take one tab s twice daily as Dee, needed for M.D. pain, avoid other nsaids Shingrix 04/04 Active Suspension 50mcg/0.5 2unit 0.5 Rec ML s milliliters Jackie Farr intramuscular Kirstin,FACKristel now and 2-3 months later repeat Cosentyx 300 01/16 Active Soln 150mg/ml 3ml 300 mg sc M45.0 Prefill every 4 weeks Dee, Syringe Ashley.Jackie Rabeprazole 01/[address] 20mg 60tab 1 tab by mouth K21.9 s twice a day Jackie Farr M.D.,FACKristel Fluticasone 03/11 Active Suspension 50mcg/Act 16gm 2 sprays each DanialCarolee Garcia nostril daily Jackie Farr, as needed [employer] Ventolin HFA 03/11 Active Aerosol 108(90Bas 1unit 2 puffs by e) s mouth four Jackie Farr, mcg/Act times a day as [employer] [place] needed Paxil 11/29 Active Tablets 30mg 90tab 1 tab by mouth s daily Jackie Farr M.D.,NBA Valacyclovir 03/09 Active Tablets 500mg as needed for Unknown HCL flare ups Allergy Active Capsules 25mg prn Unknown Relief /0000 Augmentin 04/04 Hx Tablets 875-125mg 20tab by mouth twice s a day Carolee Garduno M.D.,FACKristel 04/14 Tylenol With 12/25 Hx Tablets 300-30mg 30tab Take 1 tab by Amber Codeine #3 s mouth every Yaseen, - 4-6 hours as 01/13 needed pain Dexilant 12/[address] 60mg 90cap 1 by mouth K21.9 Cleveland s every day Carolee Garduno M.D.,FAC 01/14 Cosentyx 300 11/21 Hx Soln 150mg/ml 2ml 300 mg by Krystian Prefill subcutaneous Dee, - Syringe injection at M.D. 01/16 weeks 0, 1, 2, 3, and 4 followed by 300 mg every 4 weeks B12 Fast 11/21 Hx Tablets 5000mcg 90tab sublingual Krystian Dissolve Dispers s daily Carolee Price M.D. 04/04 Pantoprazole 11/[address] 40mg 30tab 1 by mouth K21.9 Cleveland s every day Carolee Garduno M.D.,[facility] 12/19 Nexium 24HR 03/[address] 20mg 90cap Take One K21.9 s Capsule By Jackie Farr, - Mouth Once M.DBart,FACP 11/06 Amoxicillin/C 10/30 Hx Tablets 875-125mg 20tab 1 by mouth J01.90 [place] lavulanate s twice a day Pachika Potassium - Kirstin 03/11 Paxil 10/30 Hx Tablets 20mg 30tab 1 by mouth Fox s every day Brijesh Zarco M.D. 11/29 Montelukast 10/30 Hx Tablets 10mg 30tab once daily J30.9 Fox Sodium s Brijesh Zarco M.D. 11/21 Fluticasone 03/09 Hx as directed Unknown nasal - 03/11 Paxil 03/09 Hx 10mg 20 mg every Unknown day by mouth - 10/30 Gabapentin 03/09 Hx Tablets 600mg 90tab Take One s Tablet By Jackie Farr, - Mouth Once M.D.,FACP 04/04 Daily In The Evening Nabumetone 02/01 Hx Tablets 750mg 60tab 1 by mouth s every day as Dee, - needed for M.D. 03/11 pain, other NSAIDs H79-Uxefpz 02/01 Hx Chewtabs 1mg 90uni take one R20.8 ts capsule/tablet Dee, - daily M.D. 03/11 sublingually D3-1000 01/21 Hx Tablets 1000Unit 90tab take one s capsule/tablet Dee, - daily by mouth M.D. 03/11 Lidoderm 04/23 Hx Patches 5% 30uni topical 10 ts hours Carolee Cui M.D. 03/09 Keflex 12/31 Hx Capsules 500mg 28cap 1 tab by mouth s four times a See - day M.DBart 04/22 SMZ-TMP DS 12/10 Hx Tablets 800-160mg 30tab one by mouth s twice a day Carolee Cui M.D. 12/31 Oxycodone HCL 10/06 Hx Capsules 5mg 120ca 1-2 tabs every ps 4-6 hours Carolee Cui M.D. 11/25 Omeprazole Hx 20mg Unknown /0000 - 04/22 Diclofenac 00 Hx 75mg Unknown Sodium /0000 - 02/01 Fish Oil 00/00 Hx Unknown /0000 - 04/22 Zyrtec Hx Capsules 10mg take one Unknown Allergy /0000 tablet by - mouth in the 04/04 Medications Administered in Office Medication Date Status Form Strength Qnty SIG Indications Ordering Provider Triamcinolone 09/19/ Administered Injection Zaneb (Kenalog) 2017 MD Arturo Depomedrol 80MG 03/07/ Administered Injection Dee 2014 Kirstin Chaney Immunizations CPT Code Status Date Vaccine Lot # [id number] Given 01/16/2018 Influenza Virus Vaccine, Quadrivalent, Split, Preservative Free [id number] Given 01/16/2018 Influenza Virus Vaccine, Quadrivalent, Split, Preservative Free 16898 Given 03/11/2017 Tdap - Tetanus/Diptheria/Acellular Pertussis [id number] [id number] Given 03/11/2017 Influenza Virus Vaccine, Quadrivalent, Split, [id number] Preservative Free 98119 Given 01/20/2016 Measles Mumps And Rubella MMR 81998 Given 02/23/2009 Pneumonia Vaccine Vital Signs Date Vital Result Comment 04/29/2018 5:08pm Height 66 inches 5'6" Weight 258.00 lb Heart Rate 81 /min BP Systolic Sitting 132 mmHg BP Diastolic Sitting 80 mmHg Body Temperature 98.2 F O2 % BldC Oximetry 98 % BMI (Body Mass Index) 41.6 kg/m2 04/14/2018 8:06am Height 66 inches 5'6" Weight 259.00 lb Heart Rate 80 /min BP Systolic Standing 144 mmHg BP Diastolic Standing 82 mmHg Respiratory Rate 14 /min Pain Level 3 BMI (Body Mass Index) 41.8 kg/m2 04/07/2018 8:34am Height 66 inches 5'6" Weight 257.00 lb without shoes Heart Rate 76 /min BP Systolic 134 mmHg Rue lg cuff BP Diastolic 80 mmHg Rue lg cuff BP Systolic Sitting 130 mmHg Lue lg cuff BP Diastolic Sitting 80 mmHg Lue lg cuff BP Systolic Standing 136 mmHg Lue lg cuff BP Diastolic Standing 76 mmHg Lue lg cuff Respiratory Rate 16 /min BMI (Body Mass Index) 41.5 kg/m2 04/04/2018 3:14pm Height 66 inches 5'6" Weight 257.00 lb Heart Rate 97 /min BP Systolic Sitting 130 mmHg BP Diastolic Sitting 76 mmHg Body Temperature 97.7 F O2 % BldC Oximetry 96 % BMI (Body Mass Index) 41.5 kg/m2 03/27/2018 8:25am Height 66 inches 5'6" Weight 248.00 lb BP Systolic 122 mmHg BP Diastolic 70 mmHg Respiratory Rate 18 /min Pain Level 0 BMI (Body Mass Index) 40.0 kg/m2 02/13/2018 2:20pm Heart Rate 92 /min BP Systolic 130 mmHg BP Diastolic 80 mmHg Respiratory Rate 18 /min Pain Level 5 01/07/2018 11:25am Heart Rate 76 /min BP Systolic 144 mmHg BP Diastolic 88 mmHg Respiratory Rate 16 /min Body Temperature 98.0 F Pain Level 0 12/19/2017 10:33am Height 66 inches 5'6" Weight 248.00 lb BP Systolic 126 mmHg BP Diastolic 68 mmHg Respiratory Rate 18 /min Pain Level 7 BMI (Body Mass Index) 40.0 kg/m2 11/21/2017 8:44am Height 66 inches 5'6" Weight 251.50 lb Heart Rate 68 /min BP Systolic 122 mmHg BP Diastolic 80 mmHg Pain Level 4 O2 % BldC Oximetry 98 % BMI (Body Mass Index) 40.6 kg/m2 10/31/2017 9:47am Height 66 inches 5'6" Weight 248.00 lb Heart Rate 68 /min BP Systolic Sitting 124 mmHg BP Diastolic Sitting 80 mmHg Respiratory Rate 16 /min Pain Level 5 BMI (Body Mass Index) 40.0 kg/m2 09/19/2017 8:48am Height 66 inches 5'6" Weight 248.00 lb BP Systolic Sitting 104 mmHg BP Diastolic Sitting 78 mmHg Respiratory Rate 16 /min Body Temperature 98.0 F Pain Level 9 BMI (Body Mass Index) 40.0 kg/m2 03/11/2017 3:46pm Height 66.25 inches 5'6.25" Weight 248.00 lb Heart Rate 77 /min BP Systolic Sitting 130 mmHg BP Diastolic Sitting 66 mmHg Body Temperature 98.2 F O2 % BldC Oximetry 98 % BMI (Body Mass Index) 39.7 kg/m2 10/30/2016 7:48am Height 66 inches 5'6" Weight 251.00 lb Heart Rate 73 /min BP Systolic 134 mmHg BP Diastolic 82 mmHg Body Temperature 97.9 F O2 % BldC Oximetry 97 % BMI (Body Mass Index) 40.5 kg/m2 05/15/2016 8:09am Height 66 inches 5'6" Weight 245.00 lb Heart Rate 72 /min BP Systolic 126 mmHg BP Diastolic 74 mmHg Respiratory Rate 14 /min O2 % BldC Oximetry 98 % BMI (Body Mass Index) 39.5 kg/m2 04/03/2016 11:20am Height 66 inches 5'6" Weight 245.00 lb Heart Rate 83 /min BP Systolic 130 mmHg BP Diastolic 74 mmHg Respiratory Rate 14 /min O2 % BldC Oximetry 98 % BMI (Body Mass Index) 39.5 kg/m2 03/12/2016 9:16am Height 66 inches 5'6" Weight 245.50 lb Heart Rate 70 /min BP Systolic Sitting 132 mmHg BP Diastolic Sitting 70 mmHg Respiratory Rate 16 /min O2 % BldC Oximetry 97 % BMI (Body Mass Index) 39.6 kg/m2 Neck Circumference in inches 16 02/02/2016 2:49pm Height 66 inches 5'6" Weight 245.00 lb Heart Rate 68 /min BP Systolic Sitting 126 mmHg BP Diastolic Sitting 70 mmHg Respiratory Rate 14 /min Body Temperature 97.2 F Pain Level 5 BMI (Body Mass Index) 39.5 kg/m2 01/16/2016 10:56am Height 66 inches 5'6" Weight 243.25 lb Heart Rate 68 /min BP Systolic Sitting 112 mmHg BP Diastolic Sitting 70 mmHg Respiratory Rate 14 /min Body Temperature 97.7 F Pain Level 5 BMI (Body Mass Index) 39.3 kg/m2 03/07/2015 8:26am Height 66 inches 5'6" Weight 219.00 lb Heart Rate 71 /min BP Systolic 126 mmHg BP Diastolic 79 mmHg Body Temperature 97.9 F Pain Level 7 BMI (Body Mass Index) 35.3 kg/m2 10/12/2014 3:03pm Height 66 inches 5'6" Weight 230.00 lb Pain Level 5 when having pain BMI (Body Mass Index) 37.1 kg/m2 06/09/2014 2:43pm Height 66 inches 5'6" Weight 230.00 lb Pain Level 5 BMI (Body Mass Index) 37.1 kg/m2 05/14/2014 10:31am Height 66 inches 5'6" Weight 230.00 lb Pain Level 6 BMI (Body Mass Index) 37.1 kg/m2 04/23/2014 3:12pm Height 66 inches 5'6" Weight 230.00 lb Pain Level 6 BMI (Body Mass Index) 37.1 kg/m2 01/21/2014 4:17pm Height 66 inches 5'6" Weight 230.00 lb Heart Rate 71 /min BP Systolic 126 mmHg BP Diastolic 81 mmHg BMI (Body Mass Index) 37.1 kg/m2 12/31/2013 3:39pm Height 66 inches 5'6" Weight 230.00 lb Pain Level 5 BMI (Body Mass Index) 37.1 kg/m2 12/10/2013 4:30pm Height 66 inches 5'6" Weight 230.00 lb Heart Rate 60 /min BMI (Body Mass Index) 37.1 kg/m2 11/26/2013 1:45pm Height 66 inches 5'6" Weight 230.00 lb Heart Rate 60 /min BMI (Body Mass Index) 37.1 kg/m2 10/23/2013 10:36am Height 66 inches 5'6" Weight 230.00 lb Body Temperature 98.5 F BMI (Body Mass Index) 37.1 kg/m2 10/06/2013 1:36pm Height 66 inches 5'6" Weight 230.00 lb Heart Rate 64 /min BP Systolic 142 mmHg BP Diastolic 80 mmHg BP Systolic Sitting 119 mmHg BP Diastolic Sitting 71 mmHg BMI (Body Mass Index) 37.1 kg/m2 09/02/2013 3:20pm Height 66 inches 5'6" Weight 233.00 lb Heart Rate 61 /min BP Systolic 165 mmHg BP Diastolic 83 mmHg BMI (Body Mass Index) 37.6 kg/m2 Results Test Date Facility Test Result H/L Range Note Laboratory test 04/14/2018 [facility] Erythrocyte Sed <pending> finding [address] [place] [address] [phone] C Reactive Protein <pending> Quantiferon 12/14/2017 [facility] QuantiFERON-Tb Negative Negative 1 Gold TB [address] [place] [address] [phone] TB1 Ag minus Nil Result -0.01 IU/mL TB2 Ag minus Nil Result 0 IU/mL TB Mitogen minus Nil Result 8.00 IU/mL TB Nil Result 0.02 IU/mL 2 Laboratory test 11/21/2017 [facility] Erythrocyte Sed 24 mm/Hr N 0-30 3, [address] [place] [address] [phone] C Reactive Protein 4.71 mg/L N <8.01 5 CBC Auto Diff 11/21/2017 [facility] White Blood 4.9 10^3/uL N 3.5-10.[address] [place] [address] [phone] Red Blood Count 4.40 10^6/uL N 4.00-5.40 Hemoglobin 12.7 g/dL N 12.0-16.0 Hematocrit 38 % N 35-47 Mean Corpuscular Volume 87 fL N 80-97 Mean Corpuscular Hemoglobin 29 pg N 27-31 Mean Corpuscular HGB Conc 33 g/dL N 31-36 Red Cell Distribution Width 14 % N 10.5-15 Platelet Count 226 10^3/uL N 150-450 Mean Platelet Volume 9.1 um3 N 7.4-10.4 Abs Neutrophils 2.2 10^3/uL N 1.5-7.7 Abs Lymphocytes 2.1 10^3/uL N 1.0-4.8 Abs Monocytes 0.4 10^3/uL N 0-0.8 Abs Eosinophils 0.1 10^3/uL N 0-0.6 Abs Basophils 0 10^3/uL N 0-0.2 Abs Nucleated RBC 0 10^3/uL Granulocyte % 44.8 % N 38-83 Lymphocyte % 43.1 % N 25-47 Monocyte % 8.9 % High 0-7 Eosinophil % 2.6 % N 0-6 Basophil % 0.6 % N 0-2 Nucleated Red Blood Cells % 0.1 Comp Metabolic Panel 11/21/2017 [facility] Sodium 142 mmol/L N 135-145 [address] [place] [address] [phone] Potassium 4.6 mmol/L N 3.5-5.0 Chloride 107 mmol/L N 101-111 Co2 Carbon Dioxide 29 mmol/L N 22-32 Anion Gap 6 mmol/L N 2-11 Glucose 96 mg/dL N 70-100 Blood Urea Nitrogen 18 mg/dL N 6-24 Creatinine 0.81 mg/dL N 0.51-0.95 BUN/Creatinine Ratio 22.2 High 8-20 Calcium 9.2 mg/dL N 8.6-10.3 Total Protein 6.2 g/dL Low 6.4-8.9 Albumin 3.9 g/dL N 3.2-5.2 Globulin 2.3 g/dL N 2-4 Albumin/Globulin Ratio 1.7 N 1-3 Total Bilirubin 0.50 mg/dL N 0.2-1.0 Alkaline Phosphatase 57 U/L N 34-104 Alt 29 U/L N 7-52 Ast 16 U/L N 13-39 Egfr Non- 72.9 >60 Egfr 88.2 >60 6 Laboratory test 11/21/2017 [facility] Creatine 53 U/L N 10- 223 7 finding [address] [facility] Kinase(CK) [place] [address] [phone] Vitamin B12 And 11/21/2017 [facility] Vitamin B12 374 pg/mL N 180-914 8 Folate Serum [address] [place] [address] [phone] Folic Acid (Folate) 14.83 ng/mL >3.99 9 Iron & Iron Binding 11/21/2017 [facility] Iron 97 g/dL N 50- 212 10 Capacity [address] [place] [address] [phone] Unsaturated Iron Binding 312 g/dL Total Iron Binding Capacity 409 g/dL N 250-450 Transferrin 292 mg/dL N 203-362 % Iron Saturation 24 % N 15-55 Laboratory test 11/21/2017 [facility] Ferritin 20.3 ng/mL N 11 -307 [address] [place] [address] [phone] TSH (Thyroid Stim Horm) 1.78 mcIU/mL N 0.34-5.60 12 Cortisol 5.76 g/dL 13 Vitamin D Total 25(Oh) 23.5 ng/mL N 20-50 14 Hemoglobin A1c (Glyco HGB) 5.8 % High 4.0-5.6 15 Vitamin B1 (Whole Blood) 142 nmol/L 70-180 16 Vitamin E Level 10.6 mg/L 5.5 - 17.0 17 Hla B27 05/29/2017 [facility] Hla B27 Positive 18 [address] [place] [address] [phone] Hla B27 Interp See Comment 19 Basic Metabolic Panel 05/29/2017 [facility] Sodium 140 mmol/L N 133-145 [address] [place] [address] [phone] Potassium 4.4 mmol/L N 3.5-5.0 Chloride 106 mmol/L N 101-111 Co2 Carbon Dioxide 27 mmol/L N 22-32 Anion Gap 7 mmol/L N 2-11 Glucose 125 mg/dL High 70-100 Blood Urea Nitrogen 19 mg/dL N 6-24 Creatinine 0.85 mg/dL N 0.51-0.95 BUN/Creatinine Ratio 22.4 High 8-20 Calcium 9.8 mg/dL N 8.6-10.3 Egfr Non- 69.2 >60 Egfr 89.0 >60 20 Laboratory test 05/29/2017 [facility] Hemoglobin A1c 6.0 % High 4.0-5.6 21 finding 101 [facility] (Glyco HGB) [place] [address] [phone] Lipid Profile 05/29/2017 [facility] Triglycerides 123 22 (Trig/Chol/HDL) [address] mg/[place] [address] [phone] Cholesterol 210 mg/dL 23 HDL Cholesterol 60.3 mg/dL 24 LDL Cholesterol 125 mg/dL 25 Laboratory 05/29/2017 [facility] Hepatitis C Nonreactive Nonreactive 26 test finding [address] [place] [address] [phone] Lyme Western 01/16/2016 [facility] Lyme Disease Negative N Negative Blot [address] [place] [address] [phone] Lyme Disease IgG Bands Present No bands detecte <SEE NOTE> kDa N 27 Lyme Disease IgM Ab WB Negative N Negative Lyme Disease IgM Bands Present No bands detecte <SEE NOTE> kDa N 28 Lyme Disease Interpretation See Comment N 29 Laboratory test 01/16/2016 [facility] Rheumatoid <15 IU/mL N < 15 [address] [place] [address] [phone] Vitamin D 1,25 01/16/2016 [facility] Vitamin D Total 19.3 ng/mL Low 30-50 31 And Vitamin D,[address] 25(Oh) [place] [address] [phone] Vitamin D, 1,25 Dihydroxy 51 pg/mL N 18-78 32 Laboratory test 01/16/2016 [facility] Magnesium 1.9 mg/dL N 1.9-2.7 [address] [place] [address] [phone] Free T4 (Free Thyroxine) 0.68 ng/dL N 0.61-1.12 34 T3 Free 3.10 pg/mL N 2.5-3.9 35 Vitamin B12 319 pg/mL N 180-914 36 Ssa/SSB Abs Igg 01/16/2016 [facility] SS-A/Ro Antibody <0.2 U N [address] [place] [address] [phone] SS-B/La Antibody <0.2 U N 38 Laboratory test 01/16/2016 [facility] Erythrocyte Sed 22 mm/Hr N 0-30 [address] [place] [address] [phone] C Reactive Protein 6.02 mg/L High < 5.00 40 Lyme Disease Serology Equivocal N Negative 41 CBC Auto Diff 10/02/2013 [facility] White Blood 5.2 10^3/uL N 4.8-10.[address] [place] [address] [phone] Red Blood Count 4.35 10^6/uL N 4.0-5.4 Hemoglobin 12.7 g/dL N 12.0-16.0 Hematocrit 38 % N 35-47 Mean Corpuscular Volume 88 fL N 80-97 Mean Corpuscular Hemoglobin 29 pg N 27-31 Mean Corpuscular HGB Conc 33 g/dL N 31-36 Red Cell Distribution Width 13 % N 10.5-15 Platelet Count 229 10^3/uL N 150-450 Mean Platelet Volume 10 um3 N 7.4-10.4 Abs Neutrophils 2.4 10^3/uL N 1.5-7.7 Abs Lymphocytes 2.1 10^3/uL N 1.0-4.8 Abs Monocytes 0.5 10^3/uL N 0-0.8 Abs Eosinophils 0.2 10^3/uL N 0-0.6 Abs Basophils 0 10^3/uL N 0-0.2 Abs Nucleated RBC 0 10^3/uL N Granulocyte % 46.7 % N 38-83 Lymphocyte % 40.4 % N 25-47 Monocyte % 9.3 % High 1-9 Eosinophil % 3.0 % N 0-6 Basophil % 0.6 % N 0-2 Nucleated Red Blood Cells % 0 N Comp Metabolic Panel 10/02/2013 [facility] Sodium 136 mmol/L N 133-[address] [place] [address] [phone] Potassium 4.1 mmol/L N 3.7-5.6 Chloride 103 mmol/L N 101-111 Co2 Carbon Dioxide 26 mmol/L N 22-32 Anion Gap 7 mmol/L N 2-11 Glucose 85 mg/dL N 70-100 Blood Urea Nitrogen 12 mg/dL N 6-24 Creatinine 0.72 mg/dL N 0.51-0.95 BUN/Creatinine Ratio 16.7 N 8-20 Calcium 9.1 mg/dL N 8.6-10.3 Total Protein 6.7 g/dL N 6.4-8.9 Albumin 4.0 g/dL N 3.2-5.2 Globulin 2.7 g/dL N 2-4 Albumin/Globulin Ratio 1.5 N 1-3 Total Bilirubin 0.30 mg/dL N 0.2-1.0 Alkaline Phosphatase 50 U/L N 34-104 Alt 15 U/L N 7-52 Ast 15 U/L N 13-39 Egfr Non- 85.1 N >60 Egfr 109.4 N >60 42 1 No interferon-gamma response to M. tuberculosis antigens was detected. Infection with M. tuberculosis is unlikely. A single negative result does not exclude infection with M. tuberculosis. In patients at high risk for M.tuberculosis infection, a second test should be considered in accordance with the 2017 ATS/IDSA/CDC Clinical Practice Guidelines for Diagnosis of Tuberculosis in Adults and Children [Mallory CEDENO et. al. Clin. Infect. Dis. 2017;64(2):111-115]. 2 Test Performed by: [facility] [address] [facility], [place] [address] 3 Please check 1 week prior to follow up Please check 1 week prior to follow up FASTING Please check 1 week prior to follow up FASTING Please check 1 week prior to follow up FASTING Please check 1 week prior to follow up FASTING Please check 1 week prior to follow up FASTING Please check 1 week prior to follow up FASTING Please check 1 week prior to follow up FASTING Please check 1 week prior to follow up FASTING Please check 1 week prior to follow up FASTING Please check 1 week prior to follow up FASTING Please check 1 week prior to follow up FASTING Please check 1 week prior to follow up FASTING Please check 1 week prior to follow up FASTING Please check 1 week prior to follow up FASTING Please check 1 week prior to follow up FASTING Please check 1 week prior to follow up FASTING Please check 1 week prior to follow up FASTING Please check 1 week prior to follow up FASTING Please check 1 week prior to follow up FASTING Please check 1 week prior to follow up FASTING Please check 1 week prior to follow up FASTING Please check 1 week prior to follow up FASTING Please check 1 week prior to follow up FASTING Please check 1 week prior to follow up FASTING Please check 1 week prior to follow up FASTING Please check 1 week prior to follow up FASTING Please check 1 week prior to follow up FASTING Please check 1 week prior to follow up FASTING Please check 1 week prior to follow up FASTING Please check 1 week prior to follow up FASTING Please check 1 week prior to follow up FASTING Please check 1 week prior to follow up FASTING Please check 1 week prior to follow up FASTING Please check 1 week prior to follow up FASTING Please check 1 week prior to follow up FASTING Please check 1 week prior to follow up FASTING 4 Please check 1 week prior to follow up 5 Please check 1 week prior to follow up FASTING 6 Because ethnic data is not always readily available, this report includes an eGFR for both -Americans and non- Americans. The National Kidney Disease Education Program (NKDEP) does not endorse the use of the MDRD equation for patients that are not between the ages of 18 and 70, are , have extremes of body size, muscle mass, or nutritional status, or are non- or non-. According to the National Kidney Foundation, irrespective of diagnosis, the stage of the disease is based on the level of kidney function: Stage Description GFR(mL/min/1.73 m(2)) 1 Kidney damage with normal or decreased GFR 90 2 Kidney damage with mild decrease in GFR 60-89 3 Moderate decrease in GFR 30-59 4 Severe decrease in GFR 15-29 5 Kidney failure <15 (or dialysis) 7 Please check 1 week prior to follow up FASTING 8 Normal Range 180 to 914 Indeterminate Range 145 to 180 Deficient Range <145 9 Please check 1 week prior to follow up FASTING 10 FASTING 11 FASTING 12 FASTING 13 AM 8.7-22.4 PM <10 14 FASTING 15 Therapeutic target for the treatment of diabetes mellitus patients is <7% HBA1C, and in selective patients <6.0%. Please refer to [place] [employer] diabetic care guidelines for further information. 16 ADDITIONAL INFORMATION This test was developed and its performance characteristics determined by [facility] in a manner consistent with CLIA requirements. This test has not been cleared or approved by the U.S. Food and Drug Administration. Test Performed by: [facility] - [address] [id number] 17 ADDITIONAL INFORMATION This test was developed and its performance characteristics determined by [facility] in a manner consistent with CLIA requirements. This test has not been cleared or approved by the U.S. Food and Drug Administration. Test Performed by: [facility] - [address] [id number] 18 REFERENCE VALUE Not Applicable 19 HLA-B27 antigen was detected. Approximately 8% of the normal population carries the HLA-B27 antigen. HLA-B27 is present in approximately 89% of patients with ankylosing spondylitis, 79% of patients with Sharda's syndrome and 42% of patients with juvenile rheumatoid arthritis. However, lacking other data, it is not diagnostic for these disorders. This test does not differentiate B27 alleles. i.e. B*27:05, B*27:06, etc. ADDITIONAL INFORMATION Method: Flow Cytometry Performing Laboratory CLIA# [id number] Test Performed by: [address] [id number] 20 Because ethnic data is not always readily available, this report includes an eGFR for both -Americans and non- Americans. The National Kidney Disease Education Program (NKDEP) does not endorse the use of the MDRD equation for patients that are not between the ages of 18 and 70, are , have extremes of body size, muscle mass, or nutritional status, or are non- or non-. According to the National Kidney Foundation, irrespective of diagnosis, the stage of the disease is based on the level of kidney function: Stage Description GFR(mL/min/1.73 m(2)) 1 Kidney damage with normal or decreased GFR 90 2 Kidney damage with mild decrease in GFR 60-89 3 Moderate decrease in GFR 30-59 4 Severe decrease in GFR 15-29 5 Kidney failure <15 (or dialysis) 21 Therapeutic target for the treatment of diabetes mellitus patients is <7% HBA1C, and in selective patients <6.0%. Please refer to [place] Diabetes Association diabetic care guidelines for further information. 22 Desirable: <150 Borderline High: 150-199 High: 200-499 Very High: >500 23 Desirable: <200 Borderline High: 200-239 High: >239 24 Low: <40 Desirable: 40-60 High: >60 25 Desirable: <100 Near Optimal: 100-129 Borderline High: 130-159 High: 160-189 Very High: >189 26 FASTING 10 HOUR 27 No bands detected 28 No bands detected 29 Specific serologic response to B. burgdorferi infection is not detected, but cannot rule out early infection during which low or undetectable antibody levels to B. burgdorferi may be present. If clinically indicated, a new serum specimen should be submitted in 7-14 days. ADDITIONAL INFORMATION CDC criteria require >=5 bands for IgG or >=2 bands for IgM for the Immunoblot to be considered positive. Bands (e.g.,p41) may be detected in patients without Lyme disease, and patterns not meeting the CDC criteria should be interpreted with caution. Immunoblot should be ordered only on specimens that are positive or equivocal by a FDA-licensed Lyme disease antibody screening test (e.g., EIA). Test Performed by: [facility] [place] [address] Hand Gluer And Slicer: Charlie Blanton II, M.D., Ph.D. 30 Test Performed by: [facility] [place] [address] Hand Gluer And Slicer: Charlie Blanton II, M.D., Ph.D. 31 Please check this week 32 ADDITIONAL INFORMATION This test was developed and its performance characteristics determined by [facility] in a manner consistent with CLIA requirements. This test has not been cleared or approved by the U.S. Food and Drug Administration. Test Performed by: [facility] [place] [address] Hand Gluer And Slicer: Charlie Blanton II, M.D., Ph.D. 33 Please check this week 34 Please check this week 35 Please check this week 36 Normal Range 180 to 914 Indeterminate Range 145 to 180 Deficient Range <145 37 REFERENCE VALUE <1.0 (Negative) 38 REFERENCE VALUE <1.0 (Negative) Test Performed by: [address] [address] Hand Gluer And Slicer: Charlie Blanton II, M.D., Ph.D. 39 Please check this week 40 Acute inflammation: >10.00 41 Not diagnostic. Supplemental testing ordered by reflex. Test Performed by: [place] [address] Hand Gluer And Slicer: Charlie Blanton II, M.D., Ph.D. 42 Because ethnic data is not always readily available, this report includes an eGFR for both -Americans and non- Americans. The National Kidney Disease Education Program (NKDEP) does not endorse the use of the MDRD equation for patients that are not between the ages of 18 and 70, are , have extremes of body size, muscle mass, or nutritional status, or are non- or non-. According to the National Kidney Foundation, irrespective of diagnosis, the stage of the disease is based on the level of kidney function: Stage Description GFR(mL/min/1.73 m(2)) 1 Kidney damage with normal or decreased GFR 90 2 Kidney damage with mild decrease in GFR 60-89 3 Moderate decrease in GFR 30-59 4 Severe decrease in GFR 15-29 5 Kidney failure <15 (or dialysis) Procedures Date Code Description Status 04/25/2018 29423 ECHO Transthoracic, Real-Time 2D With Doppler And Color Completed Flow 04/07/2018 67144 EKG Tracing & Interpretation Completed 12/25/2017 60973 Arthroscopy Shoulder,W/Rotator Cuff Repair Completed 12/25/2017 04628 Arthroscopy Shoulder,W/Rotator Cuff Repair Completed 12/25/2017 96411 Arthroscopy,Shoulder Decompression Of Subacromial Space Completed W/Acromio 12/25/2017 80643 Arthroscopy,Shoulder Decompression Of Subacromial Space Completed W/Acromio 12/25/2017 68315 Arthroscopy,Shoulder,Distal Claviculectomy Incl Dist Completed Articular SR 12/25/2017 42083 Arthroscopy,Shoulder,Distal Claviculectomy Incl Dist Completed Articular SR 12/25/2017 28704 Tenodesis Biceps Long Tendon Completed 12/25/2017 01996 Tenodesis Biceps Long Tendon Completed 09/19/2017 74955 Inject Tendon Sheath Or Ligament Aponeurosis Eg Plantar Completed Fascia 08/01/2017 63330698 Mammogram Completed 03/24/2016 14116 Sleep Study Unattended,HRT Rate,Oxygen Sat,Resp Completed Effort/Airflow 03/08/2016 10713655 Mammogram Completed 12/14/2015 [id number] Mammogram Completed 09/07/2015 43700159 Colonoscopy Completed 03/07/2015 98243 Inject Tendon Sheath Or Ligament Aponeurosis Eg Plantar Completed Fascia 10/07/2014 10269920 Colonoscopy Completed 11/12/2013 85036 Walking Cast Completed 10/23/2013 38226 Short Leg Cast Completed 10/12/2013 90686 Repair Achilles Tendon Secondary Completed 10/12/2013 09649 Repair Achilles Tendon Secondary Completed 10/12/2013 65792 Partial Excision Bone Talus/Calcaneus Completed 09/02/2013 97772 Rad Exam; Ankle Limited Completed 01/24/2012 14872 EKG, Interpretation Only Completed 08/25/2009 [id number] Colonoscopy Completed Encounters Type Date Location Provider Dx Diagnosis Office Visit 04/14/2018 Rheumatology Krystian Price, 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 due to excess calories R01.1 Cardiac murmur, unspecified R73.02 Impaired glucose tolerance (oral) R07.9 Chest pain, unspecified I87.2 Venous insufficiency (chronic) (peripheral) Office Visit 04/04/2018 3:20p [facility] Internal [place] Mejia Z00.01 Encounter for Medicine - Kirstin Farr,FACP general adult [address] medical exam w abnormal findings E66.09 Other obesity due to excess calories F33.0 Major depressive disorder, recurrent, mild R73.01 Impaired fasting glucose J01.90 Acute sinusitis, unspecified T45.1x5A Adverse effect of antineoplastic and immunosup drugs, init Office Visit 03/03/2018 11:30a Rheumatology Nurse Visit M45.[address] [facility] RH spondylitis of multiple sites in spine Office Visit 12/19/2017 10:30a Orthopedic Services Amber M75.41 Impingement Of C.M.A. 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 Kirstin Price spondylitis of multiple sites in spine Z79.899 Other local intermodal truck driver (current) drug therapy M51.36 Other intervertebral disc degeneration, lumbar region M25.511 Pain in right shoulder Office Visit 10/31/2017 9:45a Orthopedic Amber Morris M75.41 Impingement Services Of syndrome of right C.M.A. 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 Internal [place] Mejia J40 Bronchitis, not Medicine - [address] Kirstin Farr,FACP specified as acute Rd or chronic R79.9 Abnormal finding of blood chemistry, unspecified F33.0 Major depressive disorder, recurrent, mild M46.90 Unspecified inflammatory spondylopathy, site unspecified K21.9 Gastro-esophageal reflux disease without esophagitis G47.30 Sleep apnea, unspecified Z80.3 Family history of malignant neoplasm of breast Z23 Encounter for immunization Office Visit 10/30/2016 7:40a [facility] Internal Fox Coley, G50.0 Trigeminal Medicine - Kirstin neuralgia [address] G47.30 Sleep apnea, unspecified M79.7 Fibromyalgia J30.9 Allergic rhinitis, unspecified F33.0 Major depressive disorder, recurrent, mild J01.90 Acute sinusitis, unspecified Office Visit 05/15/2016 Pulmonology And Apolonia G47.33 Obstructive sleep 8:00a Sleep Services Of SHAVON Pollard RN, apnea (adult) [facility] (pediatric) Office Visit 04/03/2016 Pulmonology And Apolonia G47.33 Obstructive sleep 11:30a Sleep Services Of SHAVON Pollard RN, apnea (adult) [facility] (pediatric) E66.09 Other obesity due to excess calories Z68.39 Body mass index (BMI) 39.0-39.9, adult Office Visit 03/12/2016 9:00a Pulmonology And Jacqui G47.9 Sleep disorder, Sleep Services Of MD Morales unspecified Lean Engineer J30.9 Allergic rhinitis, unspecified F32.9 Major depressive disorder, single episode, unspecified E66.09 Other obesity due to excess calories Z68.39 Body mass index (BMI) 39.0-39.9, adult Office Visit 02/02/2016 Rheumatology Krystian M46.90 Unspecified 3:00p Services Of Flora Price M.D. inflammatory spondylopathy, site unspecified M79.1 Myalgia R20.8 Other disturbances of skin sensation Office Visit 01/16/2016 Rheumatology Krystian Pederson6.90 Unspecified 11:00a Services Of Flora Price M.D. inflammatory spondylopathy, site unspecified M79.1 Myalgia R06.83 Snoring M35.01 Sicca syndrome with keratoconjunctivitis R20.8 Other disturbances of skin sensation M54.2 Cervicalgia Office Visit 03/07/2015 8:00a Orthopedic Dee M65.351 Trigger finger , Services Of Kirstin Chaney right little C.M.ABart finger Office Visit 10/12/2014 3:10p Orthopedic Abhijeet Cui, V54.89 Aftercare , Services Of Kirstin Orthopedic Other C.M.A. Office Visit 06/09/2014 2:30p Orthopedic Abhijeet Cui, 726.71 Bursitis Or Services Of Kirstin Tendinitis C.M.ABart Achilles V67.09 Follow Up Examination Following Other Surgery 729.5 Pain In Limb Office Visit 05/14/2014 Orthopedic Abhijeet Geronimo6.71 Bursitis Or 10:15a Services Of Daylin Cui M.D. Tendinitis Achilles Office Visit 04/23/2014 Orthopedic Abhijeet 726.71 Bursitis Or 3:30p Services Of Daylin Cui M.D. Tendinitis Achilles Office Visit 01/21/2014 Orthopedic Abhijeet Geronimo6.71 Bursitis Or 4:15p Services Of Daylin Cui M.D. Tendinitis Achilles Office Visit 09/02/2013 Orthopedic Abhijeet 726.79 Entheosopathy Ankle 3:00p Services Of Daylin Cui M.D. & Tarsus Other [facility] P[facility]ial 11:47a Assoc,richard Maldonado D.O. Hospitalists 729.1 Myalgia & Myositis Unspec Office Visit 01/24/2012 11:47a [facility] 7[facility] Pain Precordial Assoc,Jackie SyO. Hospitalists 729.1 Myalgia & Myositis Unspec Plan of Treatment Future Appointment(s):06/25/2018 8:00 am - Krystian Price M.D. at Rheumatology [facility]05/07/2018 8:30 am - Tyrone Briones M.D. at [place] [facility]25/30/2019 8:00 am - [place] ECHO Schedule at [place] Mupidedzzb85/01/ 2019 3:00 pm - Jessica Mcdonald MD at [facility] Internal Medicine - [address]05/29/2018 8 :00 am - Amber Morris MD at Orthopedic Services Of [facility].04/29/2018 - Aminta Linton MDJ01.90 Acute sinusitis, unspecifiedFollow up:Stop the sudafed start using mucinex use flonase after using the netipot continue to use humidifier use aleve for pain
[2018-05-20] MEDS ORDERED: Gabapentin CAP(*) 300 MG ONE (11:50)
[2018-05-20] MEDS ORDERED: ceFAZolin 1 GM ADVAN(*) 1 GM ADDV.VIAL IVPB ONE (11:51)
[2018-05-20] MEDS ORDERED: Buffered Lidocaine 1% SYRIN* 1 ML/SYRINGE INTRADERM ONE (11:51)
[2018-05-20] MEDS ORDERED: Acetaminophen TAB* 325 MG ONE (11:51)
[2018-05-20] MEDS ORDERED: ceFAZolin 2 GM PREMIX in ORs 2 GM/50 ML BAG IVPB ONE (11:51)
[2018-05-20] MEDS ORDERED: Propofol* 10 MG/ML 20 ML BTL ONE (13:14)
[2018-05-20] MEDS ORDERED: Lidocaine 2% PF * 5 ML VIAL ONE ×2 (13:14→14:21)
[2018-05-20] MEDS ORDERED: Midazolam* 1 MG/ML 2 ML VIAL (2 MG) ONE (13:16)
[2018-05-20] MEDS ORDERED: Rocuronium* 10 MG/ML VIAL ONE (13:17)
[2018-05-20] MEDS ORDERED: Bupivacaine 0.5% W/EPI SDV* 30 ML VIAL ONE (13:52)
[2018-05-20] MEDS ORDERED: KETAMINE HCL* 50 MG/ML 10 ML VIAL ONE (14:20)
[2018-05-20] MEDS ORDERED: Ketorolac INJ* 30 MG/ML 1 ML VIAL ONE (14:32)
[2018-05-20] MEDS ORDERED: Metoclopramide IV* 5 MG/ML 2 ML VIAL ONE (14:32)
[2018-05-20] MEDS ORDERED: Dexamethasone IV* 4 MG/ML 1 ML (4 MG) ONE (14:32)
[2018-05-20] MEDS ORDERED: Ondansetron INJ* 2 MG/ML VIAL ONE (14:32)
[2018-05-20] MEDS ORDERED: Phenylephrine INJ* 10 MG/ML 1 ML VIAL (10 MG) ONE (14:51)
[2018-05-20] MEDS ORDERED: Naloxone* 0.4 MG/ML 1 ML VIAL IV PRN (15:03)
[2018-05-20] MEDS ORDERED: DiMENhydriNATE IV* 50 MG/ML VIAL IV PUSH PRN (15:03)
[2018-05-20] MEDS ORDERED: diPHENhydraMINE IV* 50 MG/ML 1 ml VIAL (BENADRYL) SLOW PUSH PRN (16:05)
[2018-05-20] MEDS ORDERED: Acetaminophen ADULT LIQ* 650 MG/20.3 ML UDC PO PRN (16:05)
[2018-05-20] MEDS ORDERED: Albuterol HFA INHALER* 8 gm MDI INH PRN (16:19)
[2018-05-20] MEDS ORDERED: Fluticasone NASAL SPRAY 50MCG* 16 gm SPRAY BTL BOTH NARES PRN (16:19)
[2018-05-20] MEDS ORDERED: DiMENhydriNATE IV* 50 MG/ML VIAL ONE (16:26)
[2018-05-20] MEDS ORDERED: fentaNYL* 50 MCG/ML 2 ML VIAL (100 MCG VIAL) ONE (16:29)
[2018-05-20] MEDS ORDERED: fentaNYL* 50 MCG/ML 2 ML VIAL (100 MCG VIAL) IV SLOW PU SCH (19:00)
[2018-05-20] MEDS ORDERED: fentaNYL* 50 MCG/ML 2 ML VIAL (100 MCG VIAL) IV SLOW PU PRN (19:45)
[2018-05-20] MEDS: Ketorolac INJ* 30 MG/ML 1 ML VIAL IV PRN (19:46)
[2018-05-20] MEDS: Famotidine IV* 10 MG/ML 2 ML (20 mg) IV SLOW PU SCH (19:48)
--- NOTE | 2018-05-20 20:23 | OP ---
: [facility]; [place] Farr MD; Krystian Price MD * DATE OF OPERATION: 05/20/18 - ROOM #351 DATE OF : 60 SURGEON: Danial Pope MD AVID EDITOR: Tita Neumann NP ANESTHESIOLOGIST: Tracey Childs DO ANESTHESIA: General endotracheal. PRE-OP DIAGNOSIS: Morbid obesity. POST-OP DIAGNOSIS: Morbid obesity. OPERATIVE PROCEDURE: Laparoscopic sleeve gastrectomy. ESTIMATED BLOOD LOSS: Less than 50 mL. IV FLUIDS: Crystalloid. SPECIMEN: Portion of stomach. DRAINS: None. COMPLICATIONS: None. COUNTS: Instrument, needle, sponge counts were correct. DESCRIPTION OF PROCEDURE: The patient was brought to the operating room and placed on the table supine. Sequential compression devices were placed on both lower extremities. General anesthesia was administered. The abdomen was prepped and draped in the usual sterile fashion. Time-out was performed. Local anesthetic was infiltrated to the skin and soft tissue prior to making each incision. Entry to the abdomen was through a left upper quadrant incision accommodating a 5-mm trocar. Additional trocars were placed including a 12-mm trocar in the supraumbilical position and a 5-mm trocar in the left upper quadrant laterally. There were a number of adhesions of omentum to the anterior abdominal wall into the falciform ligament. Combination of cautery dissection, LigaSure, and blunt dissection was used to free the adhesions from the anterior abdominal wall. A 12-mm trocar was then able to be placed in the right upper quadrant and a Catalino liver retractor was placed percutaneously in the subxiphoid position and used to elevate the left lobe of the liver. The gastric anatomy appeared normal. The lesser sac was entered via a perigastric dissection on the greater curvature. LigaSure was used to skeletonize the greater curvature up to the gastroesophageal ligament and this proceeded distally to 6 cm proximal to the pylorus on the greater curvature. After this, the sleeve gastrectomy was performed over a 40-Slovenian bougie using a series of firings of the EndoGIA stapler with purple cartridges with reinforcement. Once the gastrectomy was completed, the bougie was removed and staple lines were inspected and noted to be intact and hemostatic. The specimen, which was portion of stomach, was removed using an endoscopic retrieval bag through the right upper quadrant. This wound had to be enlarged to remove the stomach and then it was closed with 0 Vicryl to approximate the muscle and fascia in 1 layer. After the portion removed and all the carbon dioxide was released, the incisions were all closed with 4-0 Monocryl in subcuticular fashion. Steri- Strips were applied. The patient tolerated this procedure well, was extubated and transferred to the recovery room in stable condition. [id number]/[facility] #: [id number] [facility]
[2018-05-20] MEDS: Heparin VIAL(*) 5000 UNITS/ML VIAL (FIVE THOUSAND) SUBCUT SCH (21:40)
[2018-05-21] MEDS: Lactated Ringers 1000 ML Bag* 1,000 ML IV SCH ×2 (00:18→07:47)
[2018-05-21] MEDS: Ketorolac INJ* 30 MG/ML 1 ML VIAL IV PRN (05:04)
[2018-05-21] MEDS: Heparin VIAL(*) 5000 UNITS/ML VIAL (FIVE THOUSAND) SUBCUT SCH ×3 (05:06→22:47)
[2018-05-21] MEDS: Famotidine IV* 10 MG/ML 2 ML (20 mg) IV SLOW PU SCH ×2 (08:55→20:13)
[2018-05-21] MEDS: Ketorolac TAB * 10 MG TAB PO PRN ×2 (11:26→20:29)
[2018-05-21] MEDS: Ondansetron INJ* 2 MG/ML VIAL IV PRN ×2 (11:58→20:13)
--- NOTE | 2018-05-21 13:06 | PN ---
Progress Note - Progress Note Date of Service: 05/21/18 SOAP: Subjective: Pt reports RUQ abd pain. Some nausea, no vomiting. Walked in halls. Tolerating sips. Objective: Vital Signs Temp 99.0 F 05/21/18 11:20 Pulse 80 05/21/18 11:20 Resp 16 05/21/18 11:20 BP 137/120 05/21/18 11:20 Pulse Ox 98 05/21/18 11:20 Gen: NAD; sitting in chair. Abd: incisions with dressings c/d/i; no erythema; soft; tender at incisions. Intake & Output 05/20/18 05/21/18 05/21/18 18:59 06:59 18:59 Intake Total 1000 988 981 Output Total 600 400 Balance 1000 388 581 Weight 247 lb Intake: IV Fluids 1000 988 981 LR 1000 988 981 Oral 0 Output: Urine 600 400 Other: # Voids 1 Assessment: POD#1 s/p LSG. Doing well. Plan: Cont clears. Po pain meds. Amb. Home tomorrow.
[2018-05-21] MEDS: D5W 1/2 NS KCl 20 Meq 1000 ML* 1,000 ML IV SCH ×2 (15:45→23:16)
[2018-05-22] MEDS: Ondansetron INJ* 2 MG/ML VIAL IV PRN (03:23)
[2018-05-22] MEDS: Heparin VIAL(*) 5000 UNITS/ML VIAL (FIVE THOUSAND) SUBCUT SCH ×3 (06:32→23:17)
[2018-05-22] MEDS: D5W 1/2 NS KCl 20 Meq 1000 ML* 1,000 ML IV SCH ×2 (07:09→15:20)
[2018-05-22] MEDS ORDERED: Metoclopramide IV* 5 MG/ML 2 ML VIAL IV PRN (07:58)
[2018-05-22] MEDS ORDERED: Scopolamine 1.5 mg* PATCH TRANSDERM SCH (09:00)
[2018-05-22] MEDS: Metoclopramide IV* 5 MG/ML 2 ML VIAL IV SCH ×3 (09:03→20:03)
[2018-05-22] MEDS: Famotidine IV* 10 MG/ML 2 ML (20 mg) IV SLOW PU SCH ×2 (09:03→20:07)
[2018-05-22] MEDS: Ketorolac INJ* 30 MG/ML 1 ML VIAL IV PUSH PRN ×2 (09:15→20:05)
--- NOTE | 2018-05-22 09:16 | PN ---
Progress Note - Progress Note Date of Service: 05/22/18 Note: S: (seen w/ Dr. Pope). Has had ongoing nausea with some frothy sputum, dipesh when she tries to drink. Also having swelling of parotid glands (no h/o of same) O: Vital Signs - 8 hr 05/22/18 05/22/18 05/22/18 01:52 03:09 04:48 Temperature 99.3 F Pulse Rate 69 Respiratory 20 16 Rate Blood Pressure 138/69 (mmHg) O2 Sat by Pulse 98 99 98 Oximetry 05/22/18 06:00 Temperature Pulse Rate Respiratory 14 Rate Blood Pressure (mmHg) O2 Sat by Pulse 97 Oximetry Intake and Output Last 24 Hours 05/20/18 05/21/18 05/22/18 05/23/18 06:59 06:59 06:59 06:59 Intake Total 1987 3243 Output Total 600 2700 Balance 1388 543 Weight 247 lb Intake: IV Fluids 1987 2913 LR 1987 1971 d5 1/2ns 20k 941 Oral 0 330 Output: Urine 600 2700 Other: # Voids 1 Bilateral facial/parotid swelling; minimal tenderness; Heart: reg Lungs: clear Abd: lap sites ok; soft; min incisional tenderness, mostly at RUQ and subxiphoid sites A: persistent Nausea post lap sleeve gastrectomy; poss bilat parotitis (2/2 nausea/retching?) P: will add scopalamine patch and Reglan; lemon drops prn; cont IVF (defer d/c until 05/23)
[2018-05-23] MEDS: D5W 1/2 NS KCl 20 Meq 1000 ML* 1,000 ML IV SCH ×2 (00:43→08:54)
[2018-05-23] MEDS: Metoclopramide IV* 5 MG/ML 2 ML VIAL IV SCH ×3 (03:21→15:16)
[2018-05-23] MEDS: Ketorolac INJ* 30 MG/ML 1 ML VIAL IV PUSH PRN ×2 (03:24→15:16)
[2018-05-23] MEDS: Heparin VIAL(*) 5000 UNITS/ML VIAL (FIVE THOUSAND) SUBCUT SCH ×2 (05:50→15:16)
[2018-05-23] MEDS: Famotidine IV* 10 MG/ML 2 ML (20 mg) IV SLOW PU SCH (08:31)
--- NOTE | 2018-05-23 09:35 | PN ---
Progress Note - Progress Note Date of Service: 05/23/18 SOAP: Subjective:POD#3 S/P LAP SLEEVE GASTRECTOMY []feels better,no nausea,less facial swelling,increasing po fluids Objective: Vital Signs Temp 98.4 F 05/23/18 08:14 Pulse 67 05/23/18 08:14 Resp 16 05/23/18 08:14 BP 140/60 05/23/18 08:14 Pulse Ox 95 05/23/18 08:14 Intake & Output 05/22/18 05/23/18 05/23/18 18:59 06:59 18:59 Intake Total 60 1107 1007 Output Total 2100 1300 Balance -2039 1007 Intake: IV Fluids 867 1007 d5 1/2ns 20k 867 1007 Oral 60 240 Output: Urine 2100 1300 lungs:clear bilat;heart:RRR;abd:+bs,incisions C/D/I with steristrips,mild ecchymosis,erythema from adhesive reaction to previous dressings;ext:nontender calves [] Assessment:slowly improving with oral intake;nausea resolved [] Plan:possible discharge later today if meets oral intake criteria []
[2018-05-23] MEDS ORDERED: PARoxetine HCL TAB* 10 MG PO SCH (10:00)
[2018-05-23 12:08] VITALS: BP 141/68
--- NOTE | 2018-05-23 21:37 | DS ---
CC: Dr. [place] Farr * DISCHARGE SUMMARY: DATE OF ADMISSION: 05/20/18 DATE OF DISCHARGE: 05/23/18 ATTENDING SURGEON: Dr. Danial Pope.* (DICTATED BY HIEN VIRK NP) HOSPITAL COURSE: Please refer to admission history and physical for admission details. The patient was taken to the operating room on 05/20/18, and underwent laparoscopic sleeve gastrectomy by Dr. Pope. On postop day 1, she had been able to start taking clear liquids, but on postop day 2, she had persistent nausea and mild swelling of the parotid glands. She was prescribed a scopolamine patch, intravenous Reglan, continuous IV fluids, and lemon drops, and had a significant improvement by this morning. Today, on postop day 3, she is meeting criteria for oral intake of bariatric clear liquids. She has less swelling of the parotid glands. She is ambulating in the halls and using her Inspiron. She was seen earlier this morning by myself and Dr. Pope. This afternoon, she has met criteria for discharge. PHYSICAL EXAMINATION: General: Well-appearing, in no acute distress. Vital Signs: Temperature 98.5, heart rate 76, respirations 16, blood pressure 140/68 , and O2 saturation on room air 97%. Large urine output. Skin: Warm, dry, and intact. HEENT: Benign. Lungs: Breath sounds bilaterally clear and equal. Heart: Regular rate and rhythm. No murmurs or rubs. Abdomen: Active bowel sounds, soft, obese. Laparoscopic port sites are intact with Steri-Strips , which are clean and dry; there is mild skin irritation from previous dressings with sensitivity to the adhesive. There are no signs of any infection. Her abdomen is soft with mild incisional tenderness. Extremities: Nontender calves. No edema. Skin: Warm and dry. IMPRESSION: Postop day 3 status post laparoscopic sleeve gastrectomy, doing well. PLAN: Discharge home today. Instructions were reviewed with the patient. She has a followup appointment at [facility] next week; a prescription for Toradol tablets 10 mg and Zofran oral dissolving tablets was provided and all of her usual medications were reviewed. HIEN VIRK, BANK GUARD [id number]/[facility] #: [id number] RACHEL
== END 2018-05-23 15:37 | disposition home or self-care (01) | DRG 403 ==
LOC: AA 11:22 → SSU 17:59
PROVIDERS: ADMIT Surgery; ATTEND Surgery
PROC: 0DB64Z3 Excision of Stomach, Percutaneous Endoscopic Approach, Vertical (ICD-10-PCS; principal; 2018-05-20 13:15)
DX: E66.01 Morbid (severe) obesity due to excess calories (principal); Z68.39 Body mass index [BMI] 39.0-39.9, adult; M79.7 Fibromyalgia; M06.9 Rheumatoid arthritis, unspecified; G47.33 Obstructive sleep apnea (adult) (pediatric); L40.50 Arthropathic psoriasis, unspecified; K58.9 Irritable bowel syndrome, unspecified; M47.9 Spondylosis, unspecified; M19.90 Unspecified osteoarthritis, unspecified site; R11.0 Nausea; R59.0 Localized enlarged lymph nodes; K21.9 Gastro-esophageal reflux disease without esophagitis; Z88.5 Allergy status to narcotic agent; Z88.8 Allergy status to other drugs, medicaments and biological substances; Z91.040 Latex allergy status; Z90.49 Acquired absence of other specified parts of digestive tract; Z90.711 Acquired absence of uterus with remaining cervical stump; Z83.3 Family history of diabetes mellitus; Z82.49 Family history of ischemic heart disease and other diseases of the circulatory system; Z82.61 Family history of arthritis; Z87.891 Personal history of nicotine dependence
CPT/HCPCS: 43775; 88307; 88342; 94660; A9270-GY; J0690; J1100; J1240; J1644; J1885; J2250; J2405; J2704; J2765; J3010